=== PATIENT | female | born 1945 | race Caucasian/White ===

== ENCOUNTER 2016-12-08 10:39 | Emergency (ER) | payer MEDICARE ==
--- NOTE | 2016-12-08 12:51 | CT ---
CT THORACIC SPINE NONCONTRAST: HISTORY: Fall. Back injury. FINDINGS: Coronally oriented fractures with minimal distraction involve the spinous processes of T3, T4, T5, T 6, and T7. Other posterior elements are intact. Vertebral body height and alignment are maintained . There are degenerative changes throughout the thoracic spine. Calcifications apparent within the arterial structures. IMPRESSION: Mildly displaced spinous process fractures of T3 through T7. No unstable-type fracture is apparent. POS: [facility]
--- NOTE | 2016-12-08 12:54 | RAD ---
CHEST 1 VIEW: HISTORY: Fall. Chest pain. FINDINGS: Cardiac silhouette is magnified by projection. Pulmonary vasculature is upper limits of normal. Ca lcified granulomata are consistent with healed granulomatous disease. Mediastinum is midline with a ortic calcification. monitor and storage bin tender leads overlie the chest. IMPRESSION: Atherosclerosis. POS: [facility]
== END 2016-12-08 12:53 | disposition home or self-care (01) ==
LOC: ERS 10:39
DX: S22.039A Unspecified fracture of third thoracic vertebra, initial encounter for closed fracture (principal); S22.049A Unspecified fracture of fourth thoracic vertebra, initial encounter for closed fracture; S22.059A Unspecified fracture of T5-T6 vertebra, initial encounter for closed fracture; S22.069A Unspecified fracture of T7-T8 vertebra, initial encounter for closed fracture; E11.9 Type 2 diabetes mellitus without complications; I10 Essential (primary) hypertension; E03.9 Hypothyroidism, unspecified; F32.9 Major depressive disorder, single episode, unspecified; Z79.84 Long term (current) use of oral hypoglycemic drugs; Z79.82 Long term (current) use of aspirin; Z79.899 Other long term (current) drug therapy; W01.0XXA Fall on same level from slipping, tripping and stumbling without subsequent striking against object, initial encounter
CPT/HCPCS: 71010; 72128; 93005

== ENCOUNTER 2017-06-05 14:08 | Outpatient (CLI) | payer MEDICARE | END 2017-06-05 14:09 | disposition home or self-care (01) | LOC: BICCT 14:08 | PROVIDERS: ATTEND Orthopaedic Surgery | DX: S42.401A Unspecified fracture of lower end of right humerus, initial encounter for closed fracture; S52.121A Displaced fracture of head of right radius, initial encounter for closed fracture; S52.131A Displaced fracture of neck of right radius, initial encounter for closed fracture ==

== ENCOUNTER 2017-06-12 10:32 | Outpatient (CLI) | payer MEDICARE ==
[2017-06-12 13:02] LABS: Hemoglobin 16.2 g/dL (12.0-16.0); Mean Corpuscular HGB CONC 32.5 g/dL (32.0-36.0); Mean Corpuscular Hemoglobin 29.4 pg (27.0-31.0); Mean Corpuscular Volume 90.4 fl (81.0-99.0); Platelet Count 311 thou/uL (130-400); RBC Distribution Width 12.6 % (11.5-14.5); Red Blood Cell (RBC) Count 5.53 mill/uL (4.20-5.40); White Blood Cell (WBC) Count 11.8 thou/uL (4.8-10.8)
[2017-06-12 13:16] LABS: Anion Gap 15 mmol/L (10-20); BUN (Urea Nitrogen) 16 mg/dL (9.8-20.1); Calc. Creatinine Clearance 0 mL/min (70-130); Calcium 10.4 mg/dL (7.8-10.44); Carbon Dioxide 26 mmol/L (23-31); Chloride 100 mmol/L (98-107); Estimated GFR-MDRD 75; Potassium 4.5 mmol/L (3.5-5.1); Sodium 136 mmol/L (136-145)
[2017-06-12 13:20] LABS: Glucose 48 mg/dL (83-110)
--- NOTE | 2017-06-13 06:22 | EKG ---
Test Reason : Blood Pressure : / mmHG Vent. Rate : 083 BPM Atrial Rate : 083 BPM P-R Int : 216 ms QRS Dur : 076 ms QT Int : 388 ms P-R-T Axes : 048 084 060 degrees QTc Int : 455 ms Sinus rhythm with 1st degree A-V block Otherwise normal ECG When compared with ECG of 08-DEC-2016 11:12, No significant change was found Confirmed by CELIA CHOUDHARY ([id number]) on 06/13/2017 6:00:18 AM Referred By: FLORI Confirmed By:CELIA CHOUDHARY
== END 2017-06-12 10:33 | disposition home or self-care (01) ==
LOC: LABBT 10:32
PROVIDERS: ATTEND Orthopaedic Surgery
DX: Z01.818 Encounter for other preprocedural examination (principal); S52.121A Displaced fracture of head of right radius, initial encounter for closed fracture
CPT/HCPCS: 80048; 85027; 93005; 93010

== ENCOUNTER 2017-06-13 08:29 | Day surgery (SDC) | payer MEDICARE ==
[2017-06-12 10:55] VITALS: BMI 29.7
[2017-06-13] MEDS ORDERED: Vancomycin HCl 1.5 GM, Admixture Fee 1 EACH in Sodium Chloride 0.9% 250 ML 300 ML IVPB SCH (09:00)
[2017-06-13] MEDS ORDERED: Midazolam HCl 2 mg/2 ml Vial ONE (09:07)
[2017-06-13] MEDS ORDERED: Fentanyl 100 MCG/2 ML VIAL ONE (09:07)
[2017-06-13] MEDS ORDERED: CEFAZOLIN/Water 2 GM/20 ML SYRINGE ONE (09:28)
[2017-06-13] MEDS ORDERED: Bupivacaine/Epinephrine 0.25% 30 ML VIAL ONE (10:55)
--- NOTE | 2017-06-13 11:43 | RAD ---
HISTORY: Radial head replacement for a radial fracture. COMPARISON: 05/29/2017 FINDINGS/IMPRESSION: Two limited intraoperative fluoroscopic views of the right elbow were submitted for interpretation. The patient is status post replacement of the radial head with a prosthesis. No perihardware lucency is seen. The previously seen fracture of the lateral epicondyle is not appreciated on this exam. POS: [facility]
[2017-06-13] MEDS ORDERED: Bupivacaine HCl 0.5%/Epinephrine 1:200,000/PF 30 ml Vial ONE (16:06)
[2017-06-13] MEDS ORDERED: PROPOFOL 200 MG/20 ML VIAL ONE (16:09)
[2017-06-13] MEDS ORDERED: PHENYLEPHRINE-NS 100 MCG/ML 10 ML SYRINGE ONE (16:09)
[2017-06-13] MEDS ORDERED: Dexamethasone 20 MG/5 ML VIAL ONE (16:09)
--- NOTE | 2017-06-13 17:17 | OP ---
DATE OF OPERATION: 06/13/2017 PREOPERATIVE DIAGNOSIS: Comminuted right radial head fracture, greater than 3 fragments. POSTOPERATIVE DIAGNOSIS: Comminuted right radial head fracture, greater than 3 fragments. PROCEDURES PERFORMED: 1. Right radial head replacement. 2. Long arm splint. STAFF: Serjio Mayer M.D. MILITARY LOGISTICS SPECIALIST: Eliezer Robb PA-C. ANESTHESIA: Burrough. The patient received LMA with single shot supraclavicular. ESTIMATED BLOOD LOSS: 50 mL. TOURNIQUET TIME: 55 minutes. ANTIBIOTICS: Ancef 2 grams, vancomycin 1.5 grams. IMPLANTS: [employer] Proline stem, size +2, OD 7.5 mm and a [employer] Evolve stem 22 mm. COMPLICATIONS: None. HISTORY OF PRESENT ILLNESS: Ms. Barrios is a pleasant 71-year-old female who presented to see me on 05/29/2017. The patient had a comminuted radial head fracture that was flipped in the joint and I felt with decreased motion as well as was not repairable. I discussed with patient the risks and benefits of the lateral collateral ligament repair with a radial head replacement. The risks and benefits to include pain, scar, bleeding, infection, damage to vital structures, decreased range of motion or strength, failure of procedure, continued pain despite surgical intervention. The patient understood the risks and benefits of procedure and elected to proceed. PROCEDURE: Time out was performed designating the patient's right upper extremity as the operative site based on sight, consents and markings. After the patient received her antibiotics, the tourniquet was brought up, it was left up for a total of 55 minutes, made an oblique incision down came really more through the EDC, then through trach and its interval came down, exposed the radial neck. We took sharp dorsally supinated putting the hand away to get them removed and removed a large fragment which had caused the defect on the capitellum, it was completely resected. We removed 3 fragments of the joint exposed and saw the lesser sigmoid notch, took my split proximally and distally to expose the fascia split and then split the portion of EDC. We came down and found the patient's articular surface. We exposed the radial head by placing retractors anterior and posterior. We cut about 2 mm, protecting the arm. We then removed that fragment, began broaching, broached up to an 8.5 and chose a 7.5. We also cleaned off the radial head to make it smooth in line with about the 15- degree angle. I looked at the lesser sigmoid notch as well as the patient's coronoid as the base, this left us about mm space as well as the cornoid about 1 -2 mm space. I felt like we had good alignment on AP and lateral radiographs with our trial. We had downsized the radial head, measured about 25 and we placed a 22 mm head as that felt good in the inner diameter. We then removed all the final implant impacted together and placed it into place and took final radiographs showed nice reduction. We then washed. We closed EDC split, portion of the capsule with 0 Vicryl interrupted [id number] stitches. We then ran a locked 0 Vicryl, the fascia closed the elbow. We then washed the joint, washed again. We then closed the subcu and nylon. The patient was placed in a long posterior splint. She will follow up me in a week to remove and begin range of motion. MARSHALL
== END 2017-06-13 14:50 | disposition home or self-care (01) ==
LOC: SDC 08:29
PROVIDERS: ATTEND Orthopaedic Surgery
PROC: 0PRH0JZ Replacement of Right Radius with Synthetic Substitute, Open Approach (ICD-10-PCS; principal; 2017-06-13)
DX: S52.121A Displaced fracture of head of right radius, initial encounter for closed fracture (principal); E11.9 Type 2 diabetes mellitus without complications; E03.9 Hypothyroidism, unspecified; I10 Essential (primary) hypertension; E78.5 Hyperlipidemia, unspecified; Z98.890 Other specified postprocedural states
CPT/HCPCS: 24366; 73070; 76000; 82962; C1776 ×2; 36416; J0670; J1100; J2250; J2704; J3010; J3370; J7050

== ENCOUNTER 2017-06-24 13:58 | Outpatient (CLI) | payer MEDICARE | END 2017-06-24 13:59 | disposition home or self-care (01) | LOC: BICMAMMO 13:58 | PROVIDERS: ATTEND Internal Medicine | DX: Z12.31 Encounter for screening mammogram for malignant neoplasm of breast (principal); Z80.3 Family history of malignant neoplasm of breast | CPT/HCPCS: 77063; 77067 ==

== ENCOUNTER 2018-02-07 07:42 | Outpatient (CLI) | payer MEDICARE ==
--- NOTE | 2018-02-07 10:29 | CT ---
CT NECK SOFT TISSUES: HISTORY: Acute sialadenitis. FINDINGS: Contrast-enhanced CT of the soft tissue neck obtained. Areas of lung parenchymal scarring seen in th e right upper lobe. No definite evidence of soft tissue neck masses or lesions seen. Calcifications seen in the distal r ight and left common carotid arteries extending into the internal carotid arteries compatible with bi lateral common and proximal ICA disease. The internal carotid arteries distally are patent. The rig ht and left parotid glands and submandibular glands are intact. No evidence of abnormal calcificatio ns seen. No definite evidence of submandibular sialolith seen. No definite evidence of inflammatory change seen to suggest sialadenitis. No definite evidence of pathologic lymphadenopathy is seen. T here is some minimal deep cervical and spinal accessory chain left-sided lymph node enlargement diffu sely. These all measure less than 7 mm in their maximum dimension. IMPRESSION: 1. No significant evidence of soft tissue neck abnormality seen. 2. Severe osteophytes with cervical spine narrowing at C5-6 and C6-7. Correlation with MRI cervical spine may be of use. POS: [facility]
[2018-02-07] MEDS ORDERED: ISOVUE-370 76%-LOCM 1 ML ONE (13:28)
== END 2018-02-07 07:43 | disposition home or self-care (01) ==
LOC: BICCT 07:42
PROVIDERS: ATTEND Otolaryngology Plastic Surgery within the Head & Neck
DX: K11.21 Acute sialoadenitis (principal); M25.78 Osteophyte, vertebrae; M48.02 Spinal stenosis, cervical region
CPT/HCPCS: 70491

== ENCOUNTER 2018-08-05 11:25 | Day surgery (SDC) | payer MEDICARE ==
[2018-08-05 11:59] LABS: #Basophils 0.1 thou/uL (0.0-0.2); #Eosinphils 0.2 thou/uL (0.0-0.7); #Lymphocytes 2.4 thou/uL (1.20-3.40); #Monocytes 1.8 thou/uL (0.11-0.59); #Neutrophils 8.5 thou/uL (1.40-6.50); %Basophils 0.6 % (0.0-1.0); %Eosinophils 1.7 % (0.0-10.0); %Lymphocytes 18.6 % (21.0-51.0); %Monocytes 13.5 % (0.0-10.0); %Neutrophils 65.6 % (42.0-75.0); Mean Corpuscular HGB CONC 34.7 g/dL (32.0-36.0); Mean Corpuscular Hemoglobin 32.2 pg (27.0-31.0); Mean Corpuscular Volume 92.8 fL (78.0-98.0); Mean Platelet Volume 7.2 fL (7.4-10.4); Platelet Count 247 thou/uL (130-400); RBC Distribution Width 11.9 % (11.5-14.5); Red Blood Cell (RBC) Count 4.66 mill/uL (4.20-5.40); White Blood Cell (WBC) Count 12.9 thou/uL (4.8-10.8)
[2018-08-05 12:43] LABS: ALT (SGPT) 22 U/L (8-55); AST (SGOT) 21 U/L (5-34); Albumin 4.4 g/dL (3.4-4.8); Alkaline Phosphatase 101 U/L (40-150); Anion Gap 13 mmol/L (10-20); BUN (Urea Nitrogen) 22 mg/dL (9.8-20.1); Bilirubin, Total 0.4 mg/dL (0.2-1.2); Calc. Creatinine Clearance 0 mL/min (70-130); Calcium 10.3 mg/dL (7.8-10.44); Carbon Dioxide 27 mmol/L (23-31); Chloride 99 mmol/L (98-107); Estimated GFR-MDRD 66; Globulin 3.4 g/dL (2.4-3.5); Glucose 119 mg/dL (83-110); Protein, Total 7.8 g/dL (6.0-8.3); Sodium 135 mmol/L (136-145)
[2018-08-05 14:17] LABS: Bilirubin Negative (Negative); Blood, Urine Negative (Negative); Clarity CLEAR (Clear); Glucose, Urine (Dipstick) Negative (Negative); Leukocyte Negative (Negative); Nitrite Negative (Negative); Protein, Urine (Dipstick) Negative (Neg-Trace); Specific Gravity, Urine 1.012 (1.002-1.036); Urobilinogen 0.2 mg/dL (0.2-1.0); pH, Urine 6.5 (5.0-9.0)
--- NOTE | 2018-08-05 14:27 | CT ---
CT OF THE ABDOMEN AND PELVIS WITH IV CONTRAST INDICATION: Right lower quadrant abdominal pain for 2 weeks COMPARISON: CT the abdomen and pelvis dated January 10, 2017. FINDINGS: ABDOMEN: Lung bases: There is stable scarring within the right middle lobe. Liver: There is a calcified granuloma within the liver. Gallbladder: Normal appearing. Pancreas: Normal. Adrenal glands: Normal. Spleen: There are small calcified granuloma within the spleen. Kidneys: Normal. Retroperitoneum of the upper abdomen: There are moderate vascular calcifications seen involving the v isualized vasculature. No pathologically enlarged lymph nodes are evident. Pelvis: Small and large bowel: There is an enlarged and inflamed appendix in the right lower quadrant measuri ng 1.4 cm in its greatest diameter. No drainable fluid collection is evident. There is cecal apical wall thickening. There is a mild amount of retained stool within the colon. Bladder: Normal. Rectal and perirectal soft tissues:Normal. Reproductive structures: Surgically absent Free fluid in pelvis: No free fluid is evident. Lymphadenopathy pelvis: No lymphadenopathy is evident. Osseous structures: No acute osseous abnormalities. There is a small sclerotic lesion involving the p osterior right T12 vertebral body which is stable to comparison dated back to June 29, 2016 suspicious for a slightly atypical bony hemangioma. There is diffuse osteopenia. There is scattered degenerative and osteoarthritic changes. IMPRESSION: 1. Noncomplicated acute appendicitis. Findings called to Dr. Ward at 2:20 PM on August 05, 2018.
[2018-08-05] MEDS ORDERED: Piperacillin/Tazobactam 4.5 GM VIAL ONE (14:35)
[2018-08-05] MEDS ORDERED: Morphine 4 MG/ML VIAL ONE (15:57)
[2018-08-05] MEDS ORDERED: Bupivacaine HCl 0.5%/Epinephrine 1:200,000/PF 30 ml Vial ONE (18:20)
[2018-08-05] MEDS ORDERED: Fentanyl 100 MCG/2 ML VIAL ONE (18:32)
[2018-08-05] MEDS ORDERED: Ketorolac Tromethamine 30 MG/ML VIAL ONE (18:38)
--- NOTE | 2018-08-05 18:40 | HP ---
HISTORY OF PRESENT ILLNESS: Odalis Barrios is a 73-year-old female, who lives alone, but has her grandchild and sister with her. She has had experienced right lower quadrant pain for the last 24 hours. She has suffered anorexia, increased pain with movement, but no nausea or vomiting. She was seen in the emergency room and noted to have a white count of 12 and hemoglobin 15. Basic metabolic profile normal. Underwent a CAT scan demonstrating changes consistent with appendicitis. ALLERGIES: NONE. SOCIAL HISTORY: Tobacco, none. Alcohol, socially. MEDICATIONS: 1. Metformin. 2. Synthroid. 3. Prozac. PAST SURGICAL HISTORY: Hysterectomy, transvaginal laminectomy, tonsillectomy, right arm ORIF. Note that during her transvaginal hysterectomy, she had a colon injury and abscess, required additional treatment. REVIEW OF SYSTEMS: Noncontributory. She is up-to-date on colonoscopy, having had one a year ago. PHYSICAL EXAMINATION: VITAL SIGNS: Heart rate 74, blood pressure 130/65, respiratory rate 17, temperature 98.5 degrees, and weight 76 kg. HEAD, EARS, EYES, NOSE, AND THROAT: Unremarkable. LUNGS: Clear to auscultation. CARDIAC: Regular rate and rhythm without murmur or gallop. ABDOMEN: Soft. Tenderness in right lower quadrant. No guarding or rebound. EXTREMITIES: Unremarkable. Ankles without edema. ASSESSMENT AND PLAN: Acute appendicitis. Recommend laparoscopic video appendectomy. Risks of infection, bleeding, open operation discussed. She consents. Questions answered. Job ID: [id number]
[2018-08-05] MEDS ORDERED: Piperacillin/Tazobactam 3.375 GM VIAL ONE (19:14)
--- NOTE | 2018-08-06 00:38 | OP ---
DATE OF PROCEDURE: 08/05/2018 PREOPERATIVE DIAGNOSIS: Acute appendicitis (pain for 2 weeks, CT scan demonstrates acute appendicitis). POSTOPERATIVE DIAGNOSES: Acute appendicitis (pain for 2 weeks, CT scan demonstrates acute appendicitis) with inflammatory versus tumor mass at the base of the appendix (the patient reports colonoscopy last year). PROCEDURE PERFORMED: Laparoscopic appendectomy and partial cecectomy (just over the top of the ileocecal valve). ANESTHESIA: General, local 0.5% Marcaine with epinephrine 30 mL. NOTE: Enlarged suprapubic incision. Appendix removed in an endobag and 0 Vicryl continuous suture to close the suprapubic fascia. DESCRIPTION OF PROCEDURE: The patient was taken to the operating room where under general anesthesia, Turpin catheter placed at the beginning of the procedure and removed at the end. Abdomen was prepared with ChloraPrep and draped in routine fashion. Local anesthetic 0.5% Marcaine with epinephrine was infiltrated in the skin and subcutaneous tissue at each port site. Infraumbilical incision made, pneumoperitoneum to 15 mmHg obtained with the Veress needle, replaced with a 5 port, laparoscope inserted. Right lateral subcostal incision made and 5 port placed. Suprapubic incision made and a 12 port placed. Omentum was adherent to the cecum and appendix. This was stripped down. There were inflammatory adhesions. The appendix was chronically inflamed to the pelvic sidewall and this was stripped down with some difficulty. The cecum and proximal ascending colon were mobilized from the pelvic wall. Omentum carefully dissected free, identifying the ileocecal valve. There seemed to be a masslike effect the appendix. Partial cecectomy was undertaken as LigaSure was used to dissect the mesentery and cecum divided with 4 fires of Endo-ROBERTH blue load stapler. Portion of the cecum and appendix placed in Endobag and removed through enlarged suprapubic fascia. Area of dissection irrigated and irrigant evacuated. Hemostasis noted. Clips applied to the area of staple line that was oozing slightly. Otherwise, good hemostasis noted. There was no purulence. Irrigant and pneumoperitoneum evacuated. All instruments were removed. Liver appeared to be normal. Remainder of the viscera appeared to be normal. Suprapubic fascia approximated with continuous suture of 0 Vicryl on a UR needle. Skin and subcutaneous tissues irrigated and skin approximated with karmen. Sterile dressing applied. Job ID: [id number]
== END 2018-08-05 21:20 | disposition home or self-care (01) ==
LOC: ERS 11:25
PROVIDERS: ATTEND Specialist
PROC: 0DTJ4ZZ Resection of Appendix, Percutaneous Endoscopic Approach (ICD-10-PCS; principal; 2018-08-05)
DX: K35.80 Unspecified acute appendicitis (principal); Z79.84 Long term (current) use of oral hypoglycemic drugs; Z79.899 Other long term (current) drug therapy
CPT/HCPCS: 36415; 74177; 80053; 81003; 83690; 85025; 88304; 93005; 96365; 96366; 96375; J0131; J0670; J1885; J2270; J2543; J3010

== ENCOUNTER 2018-08-11 10:22 | Outpatient (CLI) | payer MEDICARE ==
--- NOTE | 2018-08-11 11:12 | MMO ---
Bilateral MAMMO Bilat Screen [facility]DI[facility]AL. CLINICAL HISTORY: Patient is 73 years old and is seen for screening. The patient has the following family history of breast cancer: maternal aunt, great. The patient has no personal history of cancer. VIEWS: The views performed were: bilateral craniocaudal with tomosynthesis and bilateral mediolateral oblique with tomosynthesis. FILMS COMPARED: The present examination has been compared to prior imaging studies performed at [facility] on 03/02/2013, 04/12/2014, 06/06/2016 and 06/24/2017. MAMMOGRAM FINDINGS: The breasts are heterogeneously dense, which could obscure a lesion on mammography. There are stable benign appearing calcifications seen in both breasts. There are no suspicious masses, suspicious calcifications, or new areas of architectural distortion. IMPRESSION: THERE IS NO MAMMOGRAPHIC EVIDENCE OF MALIGNANCY. A ROUTINE FOLLOW-UP MAMMOGRAM IN 1 YEAR IS RECOMMENDED. THE RESULTS OF THIS EXAM WERE SENT TO THE PATIENT. ACR BI-RADS Category 2 - Benign finding MAMMOGRAPHY NOTE: 1. A negative mammogram report should not delay a biopsy if a dominant of clinically suspicious mass is present. 2. Approximately 10% to 15% of breast cancers are not detected by mammography. 3. Adenosis and dense breasts may obscure an underlying neoplasm.
--- NOTE | 2018-08-11 11:29 | BD ---
DEXA BONE DENSITOMETRY: (Dual energy x-ray absorptiometry) DATE: 08/11/2018 HISTORY: 73-year old white female for age-related, post-menopausal, osteoporosis screening. weight: 168 lbs height: 69 in. age of menopause: 50 FINDINGS: The bone mineral density (BMD) is given in grams per square centimeter (g/cm2): LUMBAR SPINE: BMD (g/cm^2) T score Z score L1: 1.131 1.3 3.3 L2: 1.167 1.3 3.5 L3: 1.160 0.7 3.1 L4: 1.136 0.7 3.1 Total: 1.147 0.9 3.2 HIP: BMD (g/cm^2) T score Z score Femoral neck: 0.771 -0.7 1.3 Total: 0.997 0.4 2.1 IMPRESSION: 1.) The mean bone mineral density of the lumbar spine is normal. Fracture risk is not increased. 2) The bone mineral density of the femoral neck is normal. Fracture risk is not increased.
== END 2018-08-11 10:23 | disposition home or self-care (01) ==
LOC: BICMAMMO 10:22
PROVIDERS: ATTEND Internal Medicine
DX: Z12.31 Encounter for screening mammogram for malignant neoplasm of breast (principal); M85.89 Other specified disorders of bone density and structure, multiple sites; Z80.3 Family history of malignant neoplasm of breast
CPT/HCPCS: 77063; 77067; 77080

== ENCOUNTER 2019-03-31 20:10 | Observation (INO) | payer MEDICARE ==
--- NOTE | 2019-03-31 20:42 | RAD ---
PA AND LATERAL CHEST: 03/31/19 HISTORY: Chest pain. COMPARISON: A 12/05/18 study. The heart size is within normal limits. There are atherosclerotic changes of the aorta. There is line ar scarring extending from the right hilum, along the superior portion of the major fissure on the r ight. On today's examination, there is a small loculated pneumothorax that is seen along the right up per chest. This appears small. Left lung is clear. IMPRESSION: Development of a small loculated appearing right sided pneumothorax. Findings discussed with Dr. Sanchez ett. POS: [facility]
[2019-03-31] MEDS ORDERED: HYDROcodone/Acetaminophen 5/325 mg Tablet ONE (21:30)
[2019-03-31 21:52] LABS: Prothrombin Time 12.9 SEC (12.0-14.7)
[2019-03-31] MEDS ORDERED: Dextrose 50% Abboject 50 ML SYRINGE SLOW IVP PRN (21:54)
[2019-03-31] MEDS ORDERED: Insulin Regular 300 UNITS/3 ML VIAL SC PRN (21:54)
[2019-03-31] MEDS ORDERED: hydrALAZINE 20 MG/ML VIAL SLOW IVP PRN (21:54)
[2019-03-31] MEDS ORDERED: Ondansetron PF 4 MG/2 ML Vial IVP PRN (21:54)
[2019-03-31] MEDS ORDERED: Dextrose 5% in Water 1,000 ML IV PRN (21:54)
[2019-03-31 21:56] LABS: #Basophils 0.1 thou/uL (0.0-0.2); #Eosinphils 0.2 thou/uL (0.0-0.7); #Lymphocytes 2.5 thou/uL (1.20-3.40); #Monocytes 1.1 thou/uL (0.11-0.59); #Neutrophils 11.4 thou/uL (1.40-6.50); %Basophils 0.8 % (0.0-1.0); %Eosinophils 1.2 % (0.0-10.0); %Lymphocytes 16.2 % (21.0-51.0); %Monocytes 7.2 % (0.0-10.0); %Neutrophils 74.7 % (42.0-75.0); Hemoglobin 15.1 g/dL (12.0-16.0); Mean Corpuscular HGB CONC 33.5 g/dL (32.0-36.0); Mean Corpuscular Hemoglobin 30.5 pg (27.0-31.0); Mean Corpuscular Volume 91.1 fL (78.0-98.0); Mean Platelet Volume 7.2 fL (7.4-10.4); Platelet Count 256 thou/uL (130-400); RBC Distribution Width 12.2 % (11.5-14.5); Red Blood Cell (RBC) Count 4.95 mill/uL (4.20-5.40); White Blood Cell (WBC) Count 15.2 thou/uL (4.8-10.8)
[2019-03-31] MEDS ORDERED: traMADol HCl 50 MG TAB PO PRN (21:59)
[2019-03-31 22:06] LABS: Anion Gap 14 mmol/L (10-20); BUN (Urea Nitrogen) 20 mg/dL (9.8-20.1); Calc. Creatinine Clearance 0 mL/min (70-130); Calcium 9.9 mg/dL (7.8-10.44); Carbon Dioxide 26 mmol/L (23-31); Chloride 99 mmol/L (98-107); Estimated GFR-MDRD 71; Glucose 142 mg/dL (83-110); Magnesium 2.2 mg/dL (1.6-2.6); Phosphorus 3.2 mg/dL (2.3-4.7); Potassium 3.9 mmol/L (3.5-5.1); Sodium 135 mmol/L (136-145)
[2019-04-01] MEDS: Acetaminophen 500 MG TAB PO SCH ×3 (00:42→11:33)
[2019-04-01] MEDS: traMADol HCl 50 MG TAB PO SCH ×3 (00:42→11:33)
[2019-04-01] MEDS: Cyclobenzaprine 10 MG TAB PO PRN ×2 (00:44→08:44)
[2019-04-01 01:14] VITALS: BMI 25.8
[2019-04-01] MEDS: Ibuprofen 200 MG TAB PO SCH ×2 (04:59→14:27)
[2019-04-01] MEDS ORDERED: PROVENTIL INHALER 6.7 G (200 INHALATIONS) INH PRN (05:05)
[2019-04-01] MEDS ORDERED: Levothyroxine Sodium 25 MCG TAB PO SCH (06:00)
[2019-04-01] MEDS ORDERED: Levothyroxine Sodium 112 MCG TAB PO SCH (06:00)
--- NOTE | 2019-04-01 07:26 | HP ---
TRAUMA SURGEON: Matt Harrison MD CONSULTING PHYSICIAN: None. HISTORY OF PRESENT ILLNESS: The patient is a 73-year-old female, who presented to the emergency department after she had a mechanical fall in the shower. The patient reported slipping and falling in the shower and hitting her right-sided posterior chest wall on the shower bench. She denied loss of consciousness. Reports she was feeling well before that, just simply slipped. She denies loss of consciousness and anticoagulation use. She denies numbness and tingling in her upper and lower extremities. Reports that she was having persistent pain after taking 50 mg of p.o. tramadol at home, which she had from a previous appendectomy about six months ago and that is why she came to the emergency department. The patient is not able to take deep breaths or cough. REVIEW OF SYSTEMS: All additional 10-point review of systems negative except as indicated above. PAST MEDICAL HISTORY: Hypothyroidism, hyperlipidemia, diabetes, hypertension. The patient also reported that she had some type of cardiac arrhythmia for which she was recently started on a medication, but she cannot remember. She is a poor historian. PAST SURGICAL HISTORY: Appendectomy, right-sided radius ulnar surgery due to fracture, hysterectomy, C5-C6 laminectomy. SOCIAL HISTORY: The patient lives at home and gets around independently. She denies tobacco, drug, or alcohol use. MEDICATIONS: 1. Prozac. 2. Metformin. 3. Synthroid. 4. Tramadol. The patient also takes some sort of heart medication. She is a poor historian, but family has agreed to bring in her home medications. ALLERGIES: NO KNOWN DRUG ALLERGIES. PHYSICAL EXAMINATION: VITAL SIGNS: Temperature 98.8, heart rate 84, respirations 20, oxygen saturation 93% on room air, and blood pressure 156/82. PRIMARY SURVEY: Airway intact. Adequate breath sounds bilaterally, although very shallow. 2+ pulses in bilateral radials, femorals, and DPs. GCS 15. Gross motor and sensation are intact. No lacerations, bruising, or external bleeding. SECONDARY SURVEY: HEAD: Normocephalic and atraumatic. No gross palpable skull deformities or tenderness. EYES: Pupils 3-2, equal, round, reactive to light bilaterally. ENT: No hemotympanum. No epistaxis. No septal hematoma. Midface stable to manipulation. No blood in the oropharynx. Dentition is intact. NECK: No anterior neck injury/crepitus/tenderness. C-SPINE: No step-offs, deformity, and nontender. C-collar not in place. CHEST: Right-sided posterior lateral and some anterior chest wall tenderness with no crepitus. No abrasions or ecchymosis noted. Equal chest movement, although shallow. ABDOMEN: Soft, nontender, nondistended. PELVIS: Stable to palpation. Nontender. RECTAL: Deferred. GENITOURINARY: Deferred. EXTREMITIES: No gross deformities. No abrasions or ecchymosis noted. 2+ pulses in bilateral radials, femorals, and DPs. BACK/SPINE: No step-offs or deformities or tenderness to palpation of the thoracic or lumbar spine. No abrasions or ecchymosis noted. NEUROLOGIC: 5/5 strength in bilateral service correspondent, plantar flexion, dorsiflexion, normal sensation x4 extremities. LABORATORY FINDINGS: White count 15.2, hemoglobin 15.1, hematocrit 45.1, platelets 256. INR 1.0. Sodium 135, potassium 3.9, chloride 99, bicarb 26, BUN 20, creatinine 0.79, glucose 142, phosphorus 3.2, and magnesium 2.2. DIAGNOSTIC FINDINGS: Chest x-ray completed today in the emergency department demonstrates development of a small loculated-appearing right-sided pneumothorax. ASSESSMENT: 1. Status post mechanical fall from standing in the shower. 2. Small right-sided loculated pneumothorax. 3. Right-sided chest wall contusion. 4. Acute traumatic pain secondary to above. 5. History of hypothyroidism, hyperlipidemia, diabetes, hypertension, and some form of cardiac arrhythmia. PLAN: We will admit the patient to observation and send her to the surgical floor. We will start her on the PO pathway of the rib fracture protocol. We will repeat a chest x-ray in the morning to further evaluate development of the pneumothorax. We will place her on 2 L nasal cannula consistently overnight regardless of her SpO2 saturation to help resolve her pneumothorax. She will work with Physical and Occupational Therapy tomorrow. If her pneumothorax is improved or stable, her pain is well controlled, and she can move around safely, we will discharge her home tomorrow. We will also restart all of her home medications after her medications are reconciled. This patient was discussed with Dr. Harrison before this dictation. Job ID: [id number] [facility]
--- NOTE | 2019-04-01 08:15 | RAD ---
CHEST 1 VIEW: INDICATION: History of right-sided pneumothorax. FINDINGS: The small right pneumothorax has decreased in size. A small residual right apical lateral pneumothor ax remains. Left lung is clear. Heart size is normal. No acute osseous abnormality is evident. IMPRESSION: Decreasing size of right-sided pneumothorax. POS: [facility]
[2019-04-01] MEDS: Gabapentin 100 MG CAP PO SCH ×2 (08:34→14:27)
[2019-04-01] MEDS ORDERED: Polyethylene Glycol 3350 17 GM Packet PO SCH (09:00)
[2019-04-01] MEDS ORDERED: Senokot S 8.6-50 MG TAB PO SCH (09:00)
[2019-04-01] MEDS ORDERED: Non-Formulary Item 1 EACH (Levothyroxine Sodium [Synthroid] 137 MCG) PO SCH (09:00)
[2019-04-01] MEDS ORDERED: Bisoprolol Fumarate 5 MG TAB PO SCH (09:00)
[2019-04-01] MEDS ORDERED: FLUoxetine HCl 20 MG CAP PO SCH (09:00)
[2019-04-01] MEDS ORDERED: Hydrochlorothiazide 25 MG TAB PO SCH (09:00)
[2019-04-01] MEDS ORDERED: Valsartan 80 MG TAB PO SCH (09:00)
[2019-04-01 16:20] VITALS: BP 145/87; TEMP 97.6
--- NOTE | 2019-04-01 18:22 | DIS ---
DATE OF ADMISSION: 04/01/2019 DATE OF DISCHARGE: 04/01/2019 ADMISSION DIAGNOSES: 1. Status post ground level fall. 2. Small right-sided pneumothorax. 3. Right-sided chest wall contusion. 4. Acute pain secondary to above. 5. Multiple medical comorbidities. CONSULTATIONS: None. PROCEDURES: None. SUMMARY: The patient is a 73-year-old woman who fell in her bathroom striking the bathtub on her left chest. She was brought to the emergency department, evaluated, examined, noted to have the above injuries. Overnight, she had no issues. Her morning chest x-ray showed slight resolution of the pneumothorax. Upon physical exam, the patient was tolerating a diet. Her pain was controlled. She was able to reach 2000 on her incentive spirometry. She was ambulatory without difficulty. The patient was discharged home with Ultram and gabapentin for pain. She will follow up in the [facility]uma [facility] in 1 week with a repeat chest x-ray at that time and she was given strict return precautions also. Job ID: [id number]
[2019-04-01] MEDS ORDERED: Simvastatin 5 MG TAB PO SCH (21:00)
[2019-04-01] MEDS ORDERED: Montelukast Sodium 10 mg Tablet PO SCH (21:00)
== END 2019-04-01 16:37 | disposition home or self-care (01) ==
LOC: ERS 20:10 → SURG A 04-01 00:27
PROVIDERS: ADMIT Specialist; ATTEND Specialist
DX: J93.9 Pneumothorax, unspecified (principal); S20.211A Contusion of right front wall of thorax, initial encounter; G89.11 Acute pain due to trauma; E03.9 Hypothyroidism, unspecified; E78.5 Hyperlipidemia, unspecified; E11.9 Type 2 diabetes mellitus without complications; I10 Essential (primary) hypertension; I49.9 Cardiac arrhythmia, unspecified; F32.9 Major depressive disorder, single episode, unspecified; Z79.84 Long term (current) use of oral hypoglycemic drugs; Z79.899 Other long term (current) drug therapy; W18.2XXA Fall in (into) shower or empty bathtub, initial encounter
CPT/HCPCS: 36415; 36416; 71045; 71046; 80048; 83735; 84100; 85025; 85610; G0378

== ENCOUNTER 2019-04-03 12:34 | Observation (INO) | payer MEDICARE ==
[2019-04-03 13:21] LABS: #Basophils 0.1 thou/uL (0.0-0.2); #Eosinphils 0.3 thou/uL (0.0-0.7); #Lymphocytes 2.4 thou/uL (1.20-3.40); %Basophils 0.7 % (0.0-1.0); %Eosinophils 2.4 % (0.0-10.0); %Lymphocytes 18.4 % (21.0-51.0); %Monocytes 8.1 % (0.0-10.0); %Neutrophils 70.4 % (42.0-75.0); Hemoglobin 15.2 g/dL (12.0-16.0); Mean Corpuscular HGB CONC 32.9 g/dL (32.0-36.0); Mean Corpuscular Hemoglobin 30.7 pg (27.0-31.0); Mean Corpuscular Volume 93.4 fL (78.0-98.0); Mean Platelet Volume 7.5 fL (7.4-10.4); Platelet Count 233 thou/uL (130-400); RBC Distribution Width 12.1 % (11.5-14.5); Red Blood Cell (RBC) Count 4.96 mill/uL (4.20-5.40); White Blood Cell (WBC) Count 12.8 thou/uL (4.8-10.8)
--- NOTE | 2019-04-03 13:35 | RAD ---
RADIOGRAPH CHEST 1 VIEW: DATE: TIME: 1249 hours HISTORY: 73-year-old female with cough and dyspnea. FINDINGS: The thoracic aorta is tortuous and ectatic. There is no evidence of air space density, pneumothorax, or pulmonary edema. The lateral costophrenic angles are sharp. On 04/01/2019, there was a tiny residual right-sided upper pneumothorax. That is either smaller or orta s resolved. It is partially obscured by an ECG lead in that location. There is no cardiomegaly. Plate-like pulmonary scar extending from right hilum into right upper lobe is again noted. There is no cardiomegaly. IMPRESSION: 1. No acute pulmonary findings. 2. Ectasia of thoracic aorta. 3. The previously demonstrated tiny right-sided pneumothorax is currently not definitely visualized. jn [] POS: [facility]
[2019-04-03 13:42] LABS: ALT (SGPT) 22 U/L (8-55); AST (SGOT) 24 U/L (5-34); Albumin 4.7 g/dL (3.4-4.8); Alkaline Phosphatase 86 U/L (40-110); Anion Gap 13 mmol/L (10-20); BUN (Urea Nitrogen) 18 mg/dL (9.8-20.1); Bilirubin, Total 0.4 mg/dL (0.2-1.2); Calc. Creatinine Clearance 0 mL/min (70-130); Calcium 10.1 mg/dL (7.8-10.44); Carbon Dioxide 27 mmol/L (23-31); Chloride 99 mmol/L (98-107); Estimated GFR-MDRD 70; Globulin 3.4 g/dL (2.4-3.5); Glucose 85 mg/dL (83-110); Potassium 4.2 mmol/L (3.5-5.1); Protein, Total 8.1 g/dL (6.0-8.3); Sodium 135 mmol/L (136-145)
[2019-04-03] MEDS ORDERED: Iopamidol-370 76% 500 ML 1 ML ONE (14:31)
--- NOTE | 2019-04-03 15:25 | CT ---
CT ANGIOGRAM CHEST: DATE: 04/03/2019. COMPARISON: None. HISTORY: Shortness of breath, cough. TECHNIQUE: Axial CT imaging at 2.5 mm intervals from thoracic inlet through upper abdomen with intravenous contr ast. Coronal and sagittal 3D reformatted imaging obtained. FINDINGS: No chest lymphadenopathy is evident. Imaged upper abdomen grossly unremarkable. Small pleural effusion on the right. No left pleural eff usion. No significant mediastinal or pericardial fluid. No evidence for a pulmonary arterial emboli sm. Small anterior pneumothorax noted on the right with an apical and a basilar component. There is smal l volume pneumomediastinum as well. No left-sided pneumothorax is noted. There is mild volume loss involving the inferior posterior right lower lobe. Linear atelectatic thomas ge noted in the posterior right upper lobe region. There is bronchiectasis and volume loss involving the right middle lobe medially. There are scattered areas of centrilobular emphysematous change. No discrete/dominate pulmonary parenchymal mass lesion or nodule noted on the left. A nonspecific sm all pleural-based nodule is noted within the right lower lobe laterally on image 71 measuring approxi mately 6 mm in AP dimension. Followup CT examination is suggested in 6 months. Review of the osseous structures demonstrates scattered areas of degenerative change within the thora cic spine. There is no worrisome lytic or blastic bone lesion noted. There is scattered atherosclerotic calcification of the thoracic aorta, the coronary arteries, and th e upper abdominal aorta. A few scattered opacified bronchi are noted within the inferior posterior a spect of the right lower lobe suggesting a degree of aspiration. IMPRESSION: 1. Small pneumothorax on the right with apical and basilar components. Small volume pneumomediastin um noted as well. 2. Pleural-based nodule within the lateral aspect of the right lower lobe for which followup CT exam ination is advised in 6 months. 3. Atelectatic change in the right upper lobe. 4. Volume loss and bronchiectasis within the right middle lobe. 5. Small volume bronchial plugging within right lower lobe. Results called to Dr. Bernstein 2:35 p.m. 04/03/2019. CODE CR POS: OFF
[2019-04-03] MEDS ORDERED: cefTRIAXone\\ROCEPHIN 1 GM VIAL ONE (15:59)
[2019-04-03] MEDS ORDERED: Morphine 4 MG/ML VIAL ONE (16:38)
[2019-04-03] MEDS ORDERED: Azithromycin 500 MG VIAL ONE (16:38)
[2019-04-03] MEDS ORDERED: Dextrose 5% in Water 1,000 ML IV PRN (16:54)
[2019-04-03] MEDS ORDERED: Dextrose 50% Abboject 50 ML SYRINGE SLOW IVP PRN (16:54)
[2019-04-03] MEDS ORDERED: Ondansetron ODT 4 MG TAB PO PRN (16:54)
[2019-04-03] MEDS ORDERED: Insulin Regular 300 UNITS/3 ML VIAL SC PRN ×2 (16:54)
[2019-04-03] MEDS ORDERED: Ondansetron PF 4 MG/2 ML Vial IVP PRN (16:54)
[2019-04-03] MEDS ORDERED: hydrALAZINE 20 MG/ML VIAL SLOW IVP PRN (16:54)
[2019-04-03] MEDS ORDERED: traMADol HCl 50 MG TAB PO PRN (17:00)
[2019-04-03] MEDS ORDERED: Ibuprofen 200 MG TAB PO PRN (17:00)
[2019-04-03] MEDS ORDERED: Cyclobenzaprine 10 MG TAB PO PRN (17:01)
[2019-04-03 17:22] LABS: Magnesium 2.3 mg/dL (1.6-2.6); Phosphorus 4.3 mg/dL (2.3-4.7)
[2019-04-03 17:37] VITALS: BMI 26.4
[2019-04-03] MEDS: Sodium Chloride 0.9% 1,000 ML IV SCH (18:00)
[2019-04-03] MEDS: traMADol HCl 50 MG TAB PO SCH (18:00)
[2019-04-03] MEDS: Acetaminophen 500 MG TAB PO SCH (18:00)
--- NOTE | 2019-04-03 18:39 | HP ---
This is Alejandra Torres NP dictating a report for Bhanu Son MD. HISTORY OF PRESENT ILLNESS: This is a 73-year-old female, who presented to the emergency room with shortness of breath and productive cough that started today. The patient was admitted on 04/01/2019, after a mechanical fall in the shower, hitting her right side. The patient sustained a right-sided small pneumothorax and was admitted overnight for observation. The patient was discharged on pain medications and a followup appointment was scheduled with [facility] on . She has had increased pain with coughing and deep breaths. States she can feel the mucous in her right lung. The patient was evaluated in the emergency room and was found to have a possible right bibasilar pneumonia. The patient denies being febrile or having chills. The patient has normal vital signs in the emergency room. Trauma Service was asked to readmit the patient. REVIEW OF SYSTEMS: A 10-point review of systems is negative unless otherwise indicated in the above HPI. PAST MEDICAL HISTORY: Hypothyroidism, hyperlipidemia, diabetes, hypertension, cardiac arrhythmia. PAST SURGICAL HISTORY: Appendectomy, right radius ulnar surgery, hysterectomy, C5 and C6 laminectomy. SOCIAL HISTORY: The patient lives at home and gets around independently, denies alcohol use. Denies drug use. Denies smoking history. MEDICATIONS: 1. Prozac. 2. Metformin. 3. Synthroid. 4. Tramadol. 5. Gabapentin. ALLERGIES: NO KNOWN DRUG ALLERGIES. PHYSICAL EXAMINATION: VITAL SIGNS: Blood pressure 122/99, pulse 66, SpO2 of 98% on 3 L nasal cannula, respirations 20, temperature 98.2. GENERAL: A well-appearing elderly female, sitting up in hospital bed, in no acute distress. HEENT: Head is atraumatic and normocephalic, tympanic membranes unremarkable, mucous membranes moist. Pupils are equal bilateral, normal pharynx without any erythema or exudate. NECK: Normal range of motion. Trachea at midline. No cervical tenderness. RESPIRATORY: Good inspiratory and expiratory effort, symmetrical chest rise, bilateral breath sounds clear. No wheezing, rales, or rhonchi. No respiratory distress. CARDIAC: Regular rate, regular rhythm, no murmurs. ABDOMEN: Soft, nontender, nondistended, active bowel sounds. BACK: Tenderness, pain worse with deep breath on the right lateral back. EXTREMITIES: Moves all extremities. Motor strength is 5/5 in all extremities. Positive distal pulses. NEUROLOGIC: No focal deficits. The patient is oriented to person, place, time. LABORATORY DATA: WBC 12.8, RBC 4.96, hemoglobin 15.2, hematocrit 46.4, platelets 233. Sodium 135, potassium 4.2, chloride 99, BUN 18, creatinine 0.80, estimated GFR 70, glucose 85, calcium 10.1, phosphorus 4.3, magnesium 2.3, alkaline phos 86. Troponin I less than 0.010. BNP 133.2, albumin 4.7. DIAGNOSTIC DATA: Chest x-ray, impression, no acute pulmonary findings. Ectasia of thoracic aorta. Tiny right-sided pneumothorax, it is currently not definitely visualized. Chest thorax CTA; impression, small pneumothorax on the right with apical and basilar components. Small volume pneumomediastinum noted as well. Pleural- based nodule within the lateral aspect of the right lower lobe. Followup CT examination is advised in 6 months. Atelectatic change in the right lower lobe. Volume loss and bronchiectasis within the right middle lobe. Small volume bronchial plugging within the right lower lobe. ASSESSMENT: 1. Status post fall with right small apical pneumothorax on 04/01/2019. 2. Shortness of breath and productive cough. 3. Small residual right apical pneumothorax. 4. Atelectasis due to pain. 5. Right basilar changes, likely mucous plugging. PLAN: We will place the patient on observation status. We will obtain a sputum culture and follow. We will place the patient on scheduled and p.r.n. nebs. We will control the patient's pain. We will have patient do aggressive pulmonary toilet with incentive spirometer, use every hour while awake. She received antibiotics in the ER but I do not feel this this is a pneumonia, as she is not febrile. Hold additional antibiotics for now. The plan will be discussed with the attending after this dictation. Job ID: [id number] [facility]
[2019-04-03] MEDS ORDERED: Enoxaparin Sodium 40 MG/0.4 ML SYRINGE SC SCH (21:00)
[2019-04-03] MEDS: Senokot S 8.6-50 MG TAB PO SCH (21:31)
[2019-04-03] MEDS: Gabapentin 300 MG CAP PO SCH (21:36)
[2019-04-04] MEDS: Acetaminophen 500 MG TAB PO SCH ×2 (00:16→05:59)
[2019-04-04] MEDS: traMADol HCl 50 MG TAB PO SCH ×2 (00:16→06:00)
--- NOTE | 2019-04-04 01:12 | PRG ---
DATE OF SERVICE: 04/03/2019 SUBJECTIVE: This is a 73-year-old female who was admitted for observation due to concerns for productive cough and shortness of breath status post fall on 03/31/2019. The patient does have a history of small right-sided pneumothorax, this has been stable. The patient was scheduled for outpatient followup on 04/09/2019; however, she returned to the ER with complaints of shortness of breath earlier today and was admitted for observation. Upon my evaluation, the patient reports that her pain is less controlled than it was at home. She reports having difficulty coughing. She does endorse using her incentive spirometer at home and feels like her breathing stayed stable. OBJECTIVE: VITAL SIGNS: Stable and as documented in the electronic medical record. PHYSICAL EXAMINATION: GENERAL: Resting in bed, in no acute distress. PULMONARY: Normal work of breathing. Symmetric rise. 20 to 50 on incentive spirometry. GASTROINTESTINAL: Abdomen is soft, nontender, nondistended. MUSCULOSKELETAL: Moves all extremities x4. NEUROLOGIC: No focal deficit noted. ASSESSMENT: 1. Status post fall. 2. Small right apical pneumothorax. 3. Shortness of breath and cough. 4. Mucus plug, right lower lobe. 5. Atelectasis. 6. Leukocytosis, improved from previous admission. PLAN: Continue supportive care as ordered. Continue to follow sputum culture. Continue to encourage incentive spirometry and pulmonary toileting. The patient has not had any fevers since admission, her white blood cell count is improved from her initial presentation 3 days ago, she does not have evidence of bandemia. Her chest CT is consistent with atelectasis and mild mucus plugging associated with emphysematous changes. Given no definitive evidence of infiltrative process and active infection, would continue to hold antibiotics at this time. Of note, the patient did have a pulmonary nodule in the right lower lobe, which will require outpatient followup. She is doing well with her incentive spirometer at this time. Plan of care was discussed with the patient at bedside and all questions were answered prior to the end of this dictation. Job ID: [id number]
[2019-04-04 05:39] LABS: Anion Gap 12 mmol/L (10-20); BUN (Urea Nitrogen) 13 mg/dL (9.8-20.1); Calc. Creatinine Clearance 86 mL/min (70-130); Calcium 9.1 mg/dL (7.8-10.44); Carbon Dioxide 26 mmol/L (23-31); Chloride 103 mmol/L (98-107); Estimated GFR-MDRD 78; Glucose 80 mg/dL (83-110); Magnesium 2.1 mg/dL (1.6-2.6); Phosphorus 3.4 mg/dL (2.3-4.7); Sodium 137 mmol/L (136-145)
[2019-04-04] MEDS: Sodium Chloride 0.9% 1,000 ML IV SCH (06:02)
[2019-04-04 07:02] LABS: Band 4 % (5-11); Eosinophils 4 % (0-10); Hemoglobin 13.7 g/dL (12.0-16.0); Lymphocytes 42 % (21-51); MDiff Complete? YES; Mean Corpuscular HGB CONC 32.9 g/dL (32.0-36.0); Mean Corpuscular Hemoglobin 30.7 pg (27.0-31.0); Mean Corpuscular Volume 93.2 fL (78.0-98.0); Mean Platelet Volume 7.3 fL (7.4-10.4); Monocytes 8 % (0-10); Neutrophil 41 % (42-75); Platelet Count 208 thou/uL (130-400); Red Blood Cell (RBC) Count 4.46 mill/uL (4.20-5.40); White Blood Cell (WBC) Count 8.9 thou/uL (4.8-10.8)
[2019-04-04] MEDS ORDERED: Polyethylene Glycol 3350 17 GM Packet PO SCH (09:00)
[2019-04-04] MEDS: Gabapentin 300 MG CAP PO SCH (09:15)
[2019-04-04] MEDS: Senokot S 8.6-50 MG TAB PO SCH (09:16)
[2019-04-04] MEDS ORDERED: traMADol HCl 50 MG TAB PO PRN ×3 (10:26→11:45)
[2019-04-04] MEDS ORDERED: PROVENTIL INHALER 6.7 G (200 INHALATIONS) INH PRN (10:26)
[2019-04-04] MEDS ORDERED: Ibuprofen 200 MG TAB PO PRN ×2 (10:26→11:30)
[2019-04-04] MEDS ORDERED: Acetaminophen 500 MG TAB PO SCH ×2 (12:00)
[2019-04-04] MEDS ORDERED: traMADol HCl 50 MG TAB PO SCH ×2 (12:00)
[2019-04-04 12:09] VITALS: BP 152/84; TEMP 97.6
[2019-04-04] MEDS ORDERED: Gabapentin 100 MG CAP PO SCH ×2 (15:00)
--- NOTE | 2019-04-04 15:55 | PDOC.BPN ---
- Brief Progress Note 73 yo female s/p fall 04/01/2019 and subsequently discharged presents with shortness of breath and productive cough concerning for pneumonia. CT Chest demonstrated stable right pneumothorax. Laboratory analysis grossly normal. After observation, feeling much better. Encouraged to do IS at home. Vital Signs (12 hours) Temp Pulse Resp BP Pulse Ox 04/04/19 12:00 97.6 F 75 16 152/84 H 96 04/04/19 08:21 98.1 F 88 16 137/76 94 L 04/04/19 08:15 92 L 04/04/19 08:14 84 12 04/04/19 05:05 97.8 F 68 14 150/76 H 96 Weight Weight 174 lb 4.8 oz Laboratory Last Values WBC 8.9 thou/uL (4.8-10.8) 04/04/19 04:38 RBC 4.46 mill/uL (4.20-5.40) 04/04/19 04:38 Hgb 13.7 g/dL (12.0-16.0) 04/04/19 04:38 Hct 41.6 % (36.0-47.0) 04/04/19 04:38 MCV 93.2 fL (78.0-98.0) 04/04/19 04:38 MCH 30.7 pg (27.0-31.0) 04/04/19 04:38 MCHC 32.9 g/dL (32.0-36.0) 04/04/19 04:38 RDW 12.0 % (11.5-14.5) 04/04/19 04:38 Plt Count 208 thou/uL (130-400) 04/04/19 04:38 MPV 7.3 fL (7.4-10.4) L 04/04/19 04:38 Neutrophils % 70.4 % (42.0-75.0) 04/03/19 13:03 Neutrophils % (Manual) 41 % (42-75) L 04/04/19 04:38 Band Neuts % (Manual) 4 % (5-11) L 04/04/19 04:38 Lymphocytes % 18.4 % (21.0-51.0) L 04/03/19 13:03 Lymphocytes % (Manual) 42 % (21-51) 04/04/19 04:38 Monocytes % 8.1 % (0.0-10.0) 04/03/19 13:03 Monocytes % (Manual) 8 % (0-10) 04/04/19 04:38 Eosinophils % 2.4 % (0.0-10.0) 04/03/19 13:03 Eosinophils % (Manual) 4 % (0-10) 04/04/19 04:38 Basophils % 0.7 % (0.0-1.0) 04/03/19 13:03 Basophils % (Manual) 1 % (0-2) 04/04/19 04:38 Neutrophils # 9.0 thou/uL (1.40-6.50) H 04/03/19 13:03 Lymphocytes # 2.4 thou/uL (1.20-3.40) 04/03/19 13:03 Monocytes # 1.0 thou/uL (0.11-0.59) H 04/03/19 13:03 Eosinophils # 0.3 thou/uL (0.0-0.7) 04/03/19 13:03 Basophils # 0.1 thou/uL (0.0-0.2) 04/03/19 13:03 Sodium 137 mmol/L (136-145) 04/04/19 04:38 Potassium 4.0 mmol/L (3.5-5.1) 04/04/19 04:38 Chloride 103 mmol/L (98-107) 04/04/19 04:38 Carbon Dioxide 26 mmol/L (23-31) 04/04/19 04:38 Anion Gap 12 mmol/L (10-20) 04/04/19 04:38 BUN 13 mg/dL (9.8-20.1) 04/04/19 04:38 Creatinine 0.73 mg/dL (0.6-1.1) 04/04/19 04:38 Estimated GFR (MDRD) 78 04/04/19 04:38 Glucose 80 mg/dL (83-110) L 04/04/19 04:38 POC Glucose 85 mg/dL (70-110) 04/04/19 05:13 Calcium 9.1 mg/dL (7.8-10.44) 04/04/19 04:38 Phosphorus 3.4 mg/dL (2.3-4.7) 04/04/19 04:38 Magnesium 2.1 mg/dL (1.6-2.6) 04/04/19 04:38 Total Bilirubin 0.4 mg/dL (0.2-1.2) 04/03/19 13:03 AST 24 U/L (5-34) 04/03/19 13:03 ALT 22 U/L (8-55) 04/03/19 13:03 Alkaline Phosphatase 86 U/L (40-110) 04/03/19 13:03 Troponin I Less than 0.010 ng/mL (< 0.028) 04/03/19 13:03 B-Natriuretic Peptide 133.2 pg/mL (0-100) H 04/03/19 13:03 Serum Total Protein 8.1 g/dL (6.0-8.3) 04/03/19 13:03 Albumin 4.7 g/dL (3.4-4.8) 04/03/19 13:03 Globulin 3.4 g/dL (2.4-3.5) 04/03/19 13:03 Albumin/Globulin Ratio 1.4 g/dL (1.2-2.2) 04/03/19 13:03 EXAM: Alert and oriented. Sitting comfortably dressed and ready for discharge CTAB RRR ABD S/NT/ND Assessment: 73yo female s/p prior fall with SOB and sputum production. No evidence of pneumonia. Feeling much better after IS. Plan: Discharge home with instructions to continue to perform IS and improved pain control. Follow up with Trauma service as scheduled.
[2019-04-04] MEDS ORDERED: Azithromycin 250 MG TAB PO SCH (16:00)
[2019-04-04] MEDS ORDERED: Calcium Carbonate + Vit D 1 TAB PO SCH (21:00)
[2019-04-04] MEDS ORDERED: CALCIUM CITRATE PO SCH (21:00)
[2019-04-04] MEDS ORDERED: Simvastatin 5 MG TAB PO SCH (21:00)
[2019-04-04] MEDS ORDERED: Non-Formulary Item 1 EACH (Simvastatin [Zocor] 10 MG) PO SCH (21:00)
[2019-04-04] MEDS ORDERED: VITAMIN D3 PO SCH (21:00)
[2019-04-04] MEDS ORDERED: Montelukast Sodium 10 mg Tablet PO SCH ×2 (21:00)
[2019-04-04] MEDS ORDERED: metFORMIN 500 MG TAB PO SCH ×2 (21:00)
[2019-04-04] MEDS ORDERED: [UNRECOGNIZED DRUG - OTHER] PO SCH (21:00)
[2019-04-05] MEDS ORDERED: Levothyroxine Sodium 112 MCG TAB PO SCH (06:00)
[2019-04-05] MEDS ORDERED: Cyanocobalamin (Vitamin B-12) 1,000 MCG TAB PO SCH (09:00)
[2019-04-05] MEDS ORDERED: Valsartan 80 MG TAB PO SCH (09:00)
[2019-04-05] MEDS ORDERED: Non-Formulary Item 1 EACH (Valsartan/Hydrochlorothiazide [Valsartan-Hctz 160-25 Mg Tab] 1 PO SCH (09:00)
[2019-04-05] MEDS ORDERED: CYANOCOBALAMIN PO SCH (09:00)
[2019-04-05] MEDS ORDERED: Hydrochlorothiazide 25 MG TAB PO SCH (09:00)
[2019-04-05] MEDS ORDERED: Non-Formulary Item 1 EACH (Fluoxetine Hcl [Fluoxetine Hcl] 20 MG) PO SCH (09:00)
[2019-04-05] MEDS ORDERED: FLUoxetine HCl 20 MG CAP PO SCH (09:00)
[2019-04-05] MEDS ORDERED: Azithromycin 200 MG/5 ML Oral Suspension PO SCH (09:00)
[2019-04-05] MEDS ORDERED: Bisoprolol Fumarate 5 MG TAB PO SCH ×2 (09:00)
[2019-04-05] MEDS ORDERED: Non-Formulary Item 1 EACH (Levothyroxine Sodium [Synthroid] 137 MCG) PO SCH (09:00)
--- NOTE | 2019-04-06 13:23 | DIS ---
DATE OF ADMISSION: 04/03/2019 DATE OF DISCHARGE: 04/04/2019 This is Alejandra Torres NP dictating a report for Bhanu Son MD. PROCEDURES PERFORMED: 1. Chest x-ray on 04/03/2019, no acute pulmonary findings. Previously demonstrated right-sided pneumothorax that is currently not definitely visualized. 2. Chest thorax CTA impression, small pneumothorax in the right with apical and basilar components. Small volume pneumomediastinum, atelectatic change in right upper lobe, small volume bronchial plugging within the right lower lobe. PRIMARY DIAGNOSES: 1. Status post fall with right small apical pneumothorax on 04/01/2019. 2. Atelectasis. 3. Small residual apical pneumothorax, stable. 4. Productive cough. 5. Right basilar changes, likely mucus plugging. DISCHARGE MEDICATIONS: 1. Acetaminophen 1 g q.6 hours. 2. Albuterol inhaler. 3. Vitamin B12 daily. 4. Diltiazem 240 mg at bedtime. 5. Fluoxetine 20 mg p.o. q.a.m. 6. Gabapentin 100 mg p.o. 3 times a day. 7. Ibuprofen 400 mg q.8 hours p.r.n. 8. Synthroid 137 mcg p.o. q.a.m. 9. Metformin 500 mg p.o. b.i.d. 10. Singulair 20 mg p.o. at bedtime. 11. MiraLAX as needed. 12. Senokot as needed. 13. Zocor 10 mg p.o. at bedtime. 14. Valsartan hydrochlorothiazide 160-25mg p.o. q.a.m. 15. Tramadol 50 mg p.o. q.6 hours p.r.n. HISTORY OF PRESENT ILLNESS AND COURSE: This is a 73-year-old female, who presented to the emergency room with shortness of breath and productive cough that started today. The patient was admitted on 04/01/2019 after a mechanical fall in the shower, hitting her right side. The patient sustained a right-sided small pneumothorax and was admitted overnight for observation. The patient was discharged on pain medication and a followup appointment was scheduled with Trauma Clinic on 04/09/2019. The patient presented to the ER with some increased pain and coughing, worse with deep breath. The patient states that she could feel a mucus in her right lung. The patient was evaluated in the emergency room and was found to have a possible right basilar pneumonia. The patient was given IV antibiotics in the emergency room. The patient denied having any fever or chills. The patient's vital signs were stable. The patient was not tachycardic. Trauma Service was asked to readmit the patient. Scheduled nebs were done and aggressive pulmonary toilet. On the day of discharge, the patient reports feeling much better and her pain was well controlled. The patient was evaluated by Dr. Son. Vital signs were stable on the day of discharge and exam was unremarkable including cardiopulmonary and GI exam. The patient was deemed stable for discharge home with continued aggressive incentive spirometer use and pulmonary toilet. DISPOSITION: Stable. DISCHARGE INSTRUCTIONS: 1. Location: Home. 2. Diet: Regular diet. 3. Activity: As tolerated. Aggressive pulmonary toilet. 4. Followup: Follow up with Dr. Ospina with a chest x-ray on 04/09/2019. Job ID: [id number] [facility]
== END 2019-04-04 12:05 | disposition home or self-care (01) ==
LOC: ERS 12:34 → SURG A 16:11
PROVIDERS: ADMIT Surgery; ATTEND Surgery
DX: J93.9 Pneumothorax, unspecified (principal); I10 Essential (primary) hypertension; E03.9 Hypothyroidism, unspecified; E11.9 Type 2 diabetes mellitus without complications; E78.5 Hyperlipidemia, unspecified; D72.829 Elevated white blood cell count, unspecified; Z79.84 Long term (current) use of oral hypoglycemic drugs; Z79.899 Other long term (current) drug therapy; W18.30XA Fall on same level, unspecified, initial encounter; Y92.002 Bathroom of unspecified non-institutional (private) residence as the place of occurrence of the external cause
CPT/HCPCS: 71045; 71275; 80048; 80053; 82962 ×2; 83735 ×2; 83880; 84100 ×2; 84484; 85007; 85025; 85027; 87070; 87205; 87804 ×2; 93005; 94640 ×2; 94760; 96361 ×2; 96365; 96367; 96372; 96375; 99285; G0378 ×3; 36415; 36416; J0456; J0696; J1650; J2270; J7620; Q9967

== ENCOUNTER 2019-04-06 12:12 | Outpatient (CLI) | payer MEDICARE ==
--- NOTE | 2019-04-06 14:20 | RAD ---
CHEST 2 VIEWS: Date: 04/06/2019 INDICATION: History of pneumothorax after fall. COMPARISON: Prior exam dated 03/31/2019. FINDINGS: The right apical pneumothorax is nearly completely resolved. The area of subsegmental volume loss inv olving the right lung is stable. Mild bronchiectasis of the right upper lobe is stable. Left lung is clear. Heart size is normal. No acute osseous abnormality is evident. IMPRESSION: 1. Near complete resolution of the small right apical pneumothorax. 2. Stable scarring and bronchiectasis in the right upper lobe. POS: CET
== END 2019-04-06 12:13 | disposition home or self-care (01) ==
LOC: BICRAD 12:12
PROVIDERS: ATTEND Physician Assistant
DX: J93.9 Pneumothorax, unspecified (principal); J47.9 Bronchiectasis, uncomplicated; J98.4 Other disorders of lung
CPT/HCPCS: 71046

== ENCOUNTER 2019-05-12 10:11 | Outpatient (CLI) | payer MEDICARE ==
--- NOTE | 2019-05-12 10:55 | RAD ---
XR Foot Rt 3 View STANDARD History: Pain in foot Comparison: None. Findings: No acute displaced fracture or malalignment. Bones are mildly demineralized. Lisfranc interval is maintained. Moderate plantar calcaneal spur. Impression: Chronic findings. No acute abnormality.
== END 2019-05-12 10:12 | disposition home or self-care (01) ==
LOC: BICRAD 10:11
PROVIDERS: ATTEND Podiatrist
DX: M79.671 Pain in right foot (principal); M81.0 Age-related osteoporosis without current pathological fracture; M77.31 Calcaneal spur, right foot

== ENCOUNTER 2019-09-16 15:50 | Emergency (ER) | payer MEDICARE ==
--- NOTE | 2019-09-16 16:22 | ULT ---
ULTRASOUND ABDOMEN LIMITED: (RIGHT UPPER QUADRANT) DATE: 09/16/2019 HISTORY: 74 year old female with right upper quadrant abdominal pain FINDINGS: Gallbladder: Normal wall thickness. No evidence of pericholecystic fluid, gallstones, or sludge. Liver: Diffusely increased echogenicity, consistent with fatty liver. Common duct caliber:4 mm. Right kidney: No hydronephrosis. Pancreas: Nonspecific sonographic appearance. IMPRESSION: 1) Hepatic steatosis. 2) otherwise negative.
--- NOTE | 2019-09-16 16:26 | RAD ---
Chest one view HISTORY: Chest pain. COMPARISON: 04/03/2019. FINDINGS: Cardiac silhouette is magnified by projection. Pulmonary vasculature is unremarkable. Mediastinum is midline with aortic calcification. Calcified granulomata are consistent with healed granulomatous disease. Linear scarring at the right upper lobe and left lateral lung base are similar in appearance to the prior exam. No lobar consolidation or evidence of pneumothorax. IMPRESSION : Chronic-type findings are stable. No active cardiopulmonary abnormalities are demonstrated. Atherosclerosis.
[2019-09-16 16:36] LABS: #Basophils 0.1 thou/uL (0.0-0.2); #Eosinphils 0.3 thou/uL (0.0-0.7); #Lymphocytes 2.6 thou/uL (1.20-3.40); #Monocytes 1.4 thou/uL (0.11-0.59); #Neutrophils 7.2 thou/uL (1.40-6.50); %Basophils 0.8 % (0.0-1.0); %Eosinophils 2.8 % (0.0-10.0); %Lymphocytes 22.3 % (21.0-51.0); %Neutrophils 62.1 % (42.0-75.0); Hemoglobin 16.1 g/dL (12.0-16.0); Mean Corpuscular HGB CONC 33.9 g/dL (32.0-36.0); Mean Corpuscular Hemoglobin 30.8 pg (27.0-31.0); Mean Corpuscular Volume 91.1 fL (78.0-98.0); Platelet Count 257 thou/uL (130-400); Red Blood Cell (RBC) Count 5.23 mill/uL (4.20-5.40); White Blood Cell (WBC) Count 11.7 thou/uL (4.8-10.8)
[2019-09-16 17:00] LABS: ALT (SGPT) 35 U/L (8-55); AST (SGOT) 30 U/L (5-34); Albumin 4.6 g/dL (3.4-4.8); Alkaline Phosphatase 102 U/L (40-110); Anion Gap 14 mmol/L (10-20); BUN (Urea Nitrogen) 17 mg/dL (9.8-20.1); Bilirubin, Total 0.3 mg/dL (0.2-1.2); Calc. Creatinine Clearance 0 mL/min (70-130); Calcium 10.2 mg/dL (7.8-10.44); Carbon Dioxide 22 mmol/L (23-31); Chloride 100 mmol/L (98-107); Estimated GFR-MDRD 67; Globulin 3.7 g/dL (2.4-3.5); Glucose 119 mg/dL (83-110); Lipase 31 U/L (8-78); Potassium 4.1 mmol/L (3.5-5.1); Protein, Total 8.3 g/dL (6.0-8.3); Sodium 132 mmol/L (136-145)
[2019-09-16] MEDS ORDERED: Ketorolac Tromethamine 30 MG/ML VIAL ONE (18:20)
[2019-09-16 18:59] LABS: Bacteria/HPF None Seen HPF (None Seen); Bilirubin Negative (Negative); Blood, Urine Negative (Negative); Clarity Clear (Clear); Glucose, Urine (Dipstick) Normal (Negative); Ketone, Urine Negative (Negative); Leukocyte 250 Leu/uL (Negative); Nitrite Negative (Negative); Protein, Urine (Dipstick) Negative (Neg-Trace); RBC/HPF 0-3 HPF (0-3); Specific Gravity, Urine 1.014 (1.002-1.036); Squamous Epithelial 0-3 HPF (0-3); Urobilinogen Normal mg/dL (Less than 2)
== END 2019-09-16 20:01 | disposition home or self-care (01) ==
LOC: ERS 15:50
DX: B02.9 Zoster without complications (principal); I10 Essential (primary) hypertension; E78.00 Pure hypercholesterolemia, unspecified; E11.9 Type 2 diabetes mellitus without complications; E03.9 Hypothyroidism, unspecified; F32.9 Major depressive disorder, single episode, unspecified
CPT/HCPCS: 36415; 71045; 76705; 80053; 81003; 81015; 83690; 84484; 85025; 93005; 96372; J1885

== ENCOUNTER 2020-09-07 13:28 | Outpatient (CLI) | payer MEDICARE | END 2020-09-07 13:29 | disposition home or self-care (01) | LOC: BICMAMMO 13:28 | PROVIDERS: ATTEND Internal Medicine | DX: Z12.31 Encounter for screening mammogram for malignant neoplasm of breast (principal); Z80.3 Family history of malignant neoplasm of breast | CPT/HCPCS: 77063; 77067 ==

== ENCOUNTER 2021-10-16 11:43 | Outpatient (CLI) | payer MEDICARE | END 2021-10-16 11:44 | disposition home or self-care (01) | LOC: BICMAMMO 11:43 | PROVIDERS: ATTEND Internal Medicine | DX: Z12.31 Encounter for screening mammogram for malignant neoplasm of breast (principal); Z80.3 Family history of malignant neoplasm of breast | CPT/HCPCS: 77063; 77067 ==

== ENCOUNTER 2022-09-26 08:38 | Outpatient (CLI) | payer MEDICARE | END 2022-09-26 08:39 | disposition home or self-care (01) | LOC: RAD 08:38 | PROVIDERS: ATTEND Internal Medicine Critical Care Medicine | DX: R06.00 Dyspnea, unspecified (principal); R91.1 Solitary pulmonary nodule; J98.4 Other disorders of lung | CPT/HCPCS: 71046 ==

== ENCOUNTER 2022-10-25 06:13 | Day surgery (SDC) | payer MEDICARE ==
[2022-10-23 12:47] VITALS: BMI 27.3
[~2022-10-25 06:13] MED LIST: Fluorouracil 100 MG, Enoxaparin 25 MG, EPINEPHrine 0.3 MG in Ophthalmic Irrigation Solu... IRR SCH
[2022-10-25] MEDS ORDERED: PHENYLephrine 2.5% Ophth Soln 15 ml Bottle ONE (06:21)
[2022-10-25] MEDS ORDERED: Cyclopentolate 2% Opth Drop 15 ML BOT ONE (06:22)
[2022-10-25] MEDS ORDERED: fentaNYL 50 mcg/mL 1 mL Vial ONE (06:30)
[2022-10-25] MEDS ORDERED: Midazolam HCl 2 mg/2 ml Vial ONE (06:30)
[2022-10-25] MEDS ORDERED: Bupivacaine 0.75% 10 ML VIAL ONE (07:05)
[2022-10-25] MEDS ORDERED: Lidocaine 1% PF 5 ML VIAL ONE (07:05)
[2022-10-25] MEDS ORDERED: Indocyanine Green 25 MG/10 ML VIAL ONE (07:05)
[2022-10-25] MEDS ORDERED: Lidocaine 4% PF 5 ML AMP ONE (07:05)
[2022-10-25] MEDS ORDERED: PROPOFOL 200 MG/20 ML VIAL ONE (07:05)
[2022-10-25] MEDS ORDERED: Maxitrol 0.1% Opth Oint 3.5 GM TUBE ONE (07:05)
[2022-10-25] MEDS ORDERED: Triamcinolone 40 MG/ML VIAL ONE (07:05)
[2022-10-25] MEDS ORDERED: CEFAZOLIN 1 GM VIAL ONE (07:05)
== END 2022-10-25 08:50 | disposition home or self-care (01) ==
LOC: SDC 06:13
PROVIDERS: ATTEND Ophthalmology Retina Specialist
PROC: 08T53ZZ Resection of Left Vitreous, Percutaneous Approach (ICD-10-PCS; principal; 2022-10-25)
DX: H35.342 Macular cyst, hole, or pseudohole, left eye (principal); H35.372 Puckering of macula, left eye
CPT/HCPCS: 67025; 67042; J3010; J0171; J0690; J1650; J2250; J2704; J3301; J3490; J9190

== ENCOUNTER 2022-11-21 08:34 | Outpatient (CLI) | payer MEDICARE | END 2022-11-21 08:35 | disposition home or self-care (01) | LOC: BICMAMMO 08:34 | PROVIDERS: ATTEND Internal Medicine | DX: Z12.31 Encounter for screening mammogram for malignant neoplasm of breast (principal); Z80.3 Family history of malignant neoplasm of breast | CPT/HCPCS: 77063; 77067 ==

== ENCOUNTER 2023-06-27 16:00 | Outpatient (CLI) | payer MEDICARE | END 2023-06-27 16:01 | disposition home or self-care (01) | LOC: SLEEPLAB 16:00 | PROVIDERS: ATTEND Internal Medicine Critical Care Medicine | DX: G47.33 Obstructive sleep apnea (adult) (pediatric) (principal); R51.9 Headache, unspecified; R06.83 Snoring; E11.9 Type 2 diabetes mellitus without complications; I10 Essential (primary) hypertension; J45.909 Unspecified asthma, uncomplicated; G47.00 Insomnia, unspecified | CPT/HCPCS: 95811 ==

== ENCOUNTER 2024-04-23 09:10 | Outpatient (CLI) | payer MEDICARE | END 2024-04-23 09:11 | disposition home or self-care (01) | LOC: LABBT 09:10 | PROVIDERS: ATTEND Internal Medicine Cardiovascular Disease | DX: Z01.810 Encounter for preprocedural cardiovascular examination (principal); I48.19 Other persistent atrial fibrillation | CPT/HCPCS: 93005; 93010 ==

== ENCOUNTER 2024-04-27 08:19 | Day surgery (SDC) | payer MEDICARE ==
[2024-04-23 09:24] VITALS: BMI 23.8
[2024-04-23 10:07] LABS: %Basophils 0.8 % (0.0-1.0); %Lymphocytes 17.3 % (21.0-51.0); %Monocytes 10.2 % (0.0-10.0); %Neutrophils 69.1 % (42.0-75.0); Hematocrit 45.7 % (36.0-47.0); Hemoglobin 15.1 g/dL (12.0-16.0); Mean Corpuscular Hemoglobin 29.3 pg (27.0-31.0); Mean Corpuscular Volume 88.6 fL (78.0-98.0); Mean Platelet Volume 9.2 fL (7.4-10.4); Platelet Count 263 10x3/uL (130-400); RBC Distribution Width 13.5 % (11.5-14.5); Red Blood Cell (RBC) Count 5.16 mill/uL (4.20-5.40)
[2024-04-23 10:21] LABS: INR-International Normal Ratio 1.3; PTT 33.5 sec (22.9-36.1); Prothrombin Time 15.8 sec (12.0-14.7)
[2024-04-23 10:30] LABS: ALT (SGPT) 27 U/L (Less than 34); AST (SGOT) 28 U/L (11-34); Albumin 3.7 g/dL (3.1-4.5); Alkaline Phosphatase 91 U/L (40-110); Anion Gap 14 mmol/L (10-20); BUN (Urea Nitrogen) 13 mg/dL (9.8-20.1); Bilirubin, Total 0.4 mg/dL (0.3-1.2); Calc. Creatinine Clearance 0 mL/min (70-130); Calcium 9.5 mg/dL (7.8-10.44); Carbon Dioxide 25 mmol/L (23-31); Chloride 102 mmol/L (98-107); Estimated GFR 89; Globulin 3.5 g/dL (2.4-3.5); Glucose 177 mg/dL (83-110); Potassium 4.2 mmol/L (3.5-5.1); Protein, Total 7.2 g/dL (5.8-8.1); Sodium 137 mmol/L (136-145)
[2024-04-27] MEDS ORDERED: Heparin 25,000 units/D5W 500 ML ONE (08:31)
[2024-04-27] MEDS ORDERED: Heparin 10,000 UNITS/ 10 ML VIAL ONE (08:31)
[2024-04-27] MEDS ORDERED: Protamine Sulfate 50 MG/5 ML VIAL ONE ×2 (08:33→12:02)
[2024-04-27] MEDS ORDERED: fentaNYL PF 100 MCG/2 ML SYRINGE ONE (09:36)
[2024-04-27] MEDS ORDERED: PROPOFOL 200 MG/20 ML VIAL ONE (09:47)
[2024-04-27] MEDS ORDERED: NEOSTIGMINE 3 MG/3 ML SYRINGE ONE (09:47)
[2024-04-27] MEDS ORDERED: Glycopyrrolate 0.2 MG/ML 5 ML SYRINGE ONE (09:47)
[2024-04-27] MEDS ORDERED: Dexamethasone 20 MG/5 ML VIAL ONE (09:47)
[2024-04-27] MEDS ORDERED: Ondansetron PF 4 MG/2 ML Vial ONE (09:47)
[2024-04-27] MEDS ORDERED: Lidocaine 1% PF 5 ML VIAL ONE (09:47)
[2024-04-27] MEDS ORDERED: Rocuronium Bromide 10 MG/ML (10ML VIAL) ONE (09:47)
[2024-04-27] MEDS ORDERED: Phenylephrine 10 MG/ML VIAL ONE (10:09)
[2024-04-27] MEDS ORDERED: Isoproterenol 0.2 MG/1 ML AMP ONE (10:10)
[2024-04-27] MEDS ORDERED: SUGAMMADEX SODIUM 200 MG/2 ML VIAL ONE (12:20)
[2024-04-29 16:14] LABS: Hemoglobin,Free - Plasma 67.8 mg/dL (0.0-4.9)
== END 2024-04-27 16:48 | disposition home or self-care (01) ==
LOC: SDC 08:19
PROVIDERS: ATTEND Internal Medicine Cardiovascular Disease
PROC: 4A023FZ Measurement of Cardiac Rhythm, Percutaneous Approach (ICD-10-PCS; principal; 2024-04-27)
PROC: 02583ZZ Destruction of Conduction Mechanism, Percutaneous Approach (ICD-10-PCS; 2024-04-27)
DX: I48.19 Other persistent atrial fibrillation (principal); I10 Essential (primary) hypertension; E11.9 Type 2 diabetes mellitus without complications; E78.5 Hyperlipidemia, unspecified; E03.9 Hypothyroidism, unspecified; F41.9 Anxiety disorder, unspecified; K76.0 Fatty (change of) liver, not elsewhere classified; J45.909 Unspecified asthma, uncomplicated; Z90.710 Acquired absence of both cervix and uterus; Z90.89 Acquired absence of other organs; Z90.49 Acquired absence of other specified parts of digestive tract; Z79.01 Long term (current) use of anticoagulants
CPT/HCPCS: 80053; 82962; 83010; 83051; 83874; 85025; 85347 ×2; 85610; 85730; 86850; 86900; 86901; 93623; 93656; 93657; C1730; C1732; C1733; C1759; C1760; C1766; C1769; C1894; J1644 ×2; J2371; J2720; 36416; 93005; J1100; J2405; J2704

== ENCOUNTER 2024-11-03 08:35 | Outpatient (CLI) | payer MEDICARE ==
[2024-11-03 10:15] LABS: #Basophils 0.09 10x3/uL (0.0-0.2); #Eosinophils 0.23 10x3/uL (0.0-0.7); #Monocytes 1.02 10x3/uL (0.11-0.59); #Neutrophils 5.94 10x3/uL (1.40-6.50); %Basophils 0.9 % (0.0-1.0); %Eosinophils 2.4 % (0.0-10.0); %Lymphocytes 23.9 % (21.0-51.0); %Monocytes 10.5 % (0.0-10.0); %Neutrophils 61.1 % (42.0-75.0); Hematocrit 42.8 % (36.0-47.0); Hemoglobin 14.3 g/dL (12.0-16.0); Mean Corpuscular Hemoglobin 29.8 pg (27.0-31.0); Mean Corpuscular Volume 89.2 fL (78.0-98.0); Platelet Count 232 10x3/uL (130-400); Red Blood Cell (RBC) Count 4.80 mill/uL (4.20-5.40); White Blood Cell (WBC) Count 9.72 10x3/uL (4.8-10.8)
[2024-11-03 10:41] LABS: INR-International Normal Ratio 1.4; Prothrombin Time 17.1 sec (12.0-14.7)
[2024-11-03 10:42] LABS: PTT 37.4 sec (22.9-36.1)
[2024-11-03 10:59] LABS: Anion Gap 14 mmol/L (10-20); BUN (Urea Nitrogen) 15 mg/dL (9.8-20.1); Calc. Creatinine Clearance 0 mL/min (70-130); Calcium 9.4 mg/dL (7.8-10.44); Carbon Dioxide 22 mmol/L (23-31); Chloride 104 mmol/L (98-107); Glucose 109 mg/dL (83-110); Potassium 4.2 mmol/L (3.5-5.1); Sodium 136 mmol/L (136-145)
== END 2024-11-03 08:36 | disposition home or self-care (01) ==
LOC: LABBT 08:35
PROVIDERS: ATTEND Internal Medicine Cardiovascular Disease
DX: Z01.812 Encounter for preprocedural laboratory examination (principal); I48.19 Other persistent atrial fibrillation; I48.92 Unspecified atrial flutter
CPT/HCPCS: 80048; 85025; 85610; 85730

== ENCOUNTER 2024-11-04 08:27 | Day surgery (SDC) | payer MEDICARE ==
[2024-11-03 08:47] VITALS: BMI 25.8
[2024-11-04] MEDS ORDERED: Lidocaine 1% PF 5 ML VIAL ONE (11:26)
[2024-11-04] MEDS ORDERED: PROPOFOL 200 MG/20 ML VIAL ONE (11:26)
== END 2024-11-04 12:13 | disposition home or self-care (01) ==
LOC: SDC 08:27
PROVIDERS: ATTEND Internal Medicine Cardiovascular Disease
PROC: 5A2204Z Restoration of Cardiac Rhythm, Single (ICD-10-PCS; principal; 2024-11-04)
DX: I48.19 Other persistent atrial fibrillation (principal); Z90.89 Acquired absence of other organs; Z90.710 Acquired absence of both cervix and uterus; Z90.49 Acquired absence of other specified parts of digestive tract
CPT/HCPCS: 36416; 92960; J2704

== ENCOUNTER 2024-11-08 09:32 | Emergency (ER) | payer MEDICARE ==
[2024-11-08 10:05] LABS: #Basophils 0.06 10x3/uL (0.0-0.2); #Eosinophils 0.14 10x3/uL (0.0-0.7); #Monocytes 1.24 10x3/uL (0.11-0.59); #Neutrophils 8.75 10x3/uL (1.40-6.50); %Basophils 0.5 % (0.0-1.0); %Eosinophils 1.2 % (0.0-10.0); %Lymphocytes 11.8 % (21.0-51.0); %Monocytes 10.7 % (0.0-10.0); %Neutrophils 75.4 % (42.0-75.0); Hematocrit 39.3 % (36.0-47.0); Hemoglobin 13.0 g/dL (12.0-16.0); Mean Corpuscular Hemoglobin 29.5 pg (27.0-31.0); Mean Corpuscular Volume 89.1 fL (78.0-98.0); Platelet Count 193 10x3/uL (130-400); Red Blood Cell (RBC) Count 4.41 mill/uL (4.20-5.40); White Blood Cell (WBC) Count 11.61 10x3/uL (4.8-10.8)
[2024-11-08] MEDS ORDERED: Droperidol 5 MG/2 ML VIAL ONE (10:15)
[2024-11-08 10:20] LABS: ALT (SGPT) 25 U/L (Less than 34); AST (SGOT) 26 U/L (11-34); Albumin 3.8 g/dL (3.1-4.5); Alkaline Phosphatase 71 U/L (40-110); Anion Gap 14 mmol/L (10-20); BUN (Urea Nitrogen) 15 mg/dL (9.8-20.1); Bilirubin, Total 1.0 mg/dL (0.3-1.2); Calc. Creatinine Clearance 0 mL/min (70-130); Calcium 9.4 mg/dL (7.8-10.44); Carbon Dioxide 24 mmol/L (23-31); Chloride 97 mmol/L (98-107); Globulin 3.7 g/dL (2.4-3.5); Glucose 130 mg/dL (83-110); Lipase 19 U/L (8-78); Magnesium 2.1 mg/dL (1.6-2.6); Potassium 3.8 mmol/L (3.5-5.1); Sodium 131 mmol/L (136-145)
[2024-11-08 10:55] LABS: Bacteria/HPF None Seen HPF (None Seen); CAUTI Indications for Culture Pelvic or flank pain; Glucose, Urine (Dipstick) Normal (Negative); Leukocyte Negative Leu/uL (Negative); Protein, Urine (Dipstick) Negative (Neg-Trace); RBC/HPF 0-3 HPF (0-3); Specific Gravity, Urine 1.015 (1.002-1.036); WBC/HPF 0-3 HPF (0-3)
[2024-11-08 10:58] LABS: Urine Culture Reflex No No
[2024-11-08] MEDS ORDERED: Iopamidol-370 76% 500 ML MDV (1 ML CHARGE) ONE (13:20)
== END 2024-11-08 13:14 | disposition home or self-care (01) ==
LOC: ERS 09:32
DX: R10.13 Epigastric pain (principal); J45.901 Unspecified asthma with (acute) exacerbation; J18.9 Pneumonia, unspecified organism; E11.9 Type 2 diabetes mellitus without complications; I10 Essential (primary) hypertension; Z55.6 Problems related to health literacy; Z75.3 Unavailability and inaccessibility of health-care facilities
CPT/HCPCS: 70450; 71045; 71275; 74177; 76705; 80053; 81001; 83605; 83690; 83735; 83880; 84484; 85025; 85379; 87428; 93005; J1790; J2543; J2919; J3010; 36415; 96374; 96375; J7620; Q9967

== ENCOUNTER 2024-11-20 13:19 | Outpatient (CLI) | payer MEDICARE ==
[2024-11-20] MEDS ORDERED: Iopamidol-370 76% 500 ML MDV (1 ML CHARGE) ONE (15:37)
== END 2024-11-20 13:20 | disposition home or self-care (01) ==
LOC: CT 13:19
PROVIDERS: ATTEND Internal Medicine Critical Care Medicine
DX: R06.00 Dyspnea, unspecified (principal); I26.99 Other pulmonary embolism without acute cor pulmonale; R91.8 Other nonspecific abnormal finding of lung field
CPT/HCPCS: 71046; 71275; Q9967

== ENCOUNTER 2025-01-25 14:09 | Inpatient (IN) | payer MEDICARE ==
[~2025-01-25 14:09] MED LIST changes: -Fluorouracil 100 MG, Enoxaparin 25 MG, EPINEPHrine 0.3 MG in Ophthalmic Irrigation Solu... IRR SCH; +Iopamidol-370 76% 500 ML MDV (1 ML CHARGE) ONE
[2025-01-25 15:13] LABS: #Basophils 0.11 10x3/uL (0.0-0.2); #Eosinophils 0.43 10x3/uL (0.0-0.7); #Monocytes 1.46 10x3/uL (0.11-0.59); #Neutrophils 7.43 10x3/uL (1.40-6.50); %Basophils 0.9 % (0.0-1.0); %Eosinophils 3.6 % (0.0-10.0); %Lymphocytes 19.4 % (21.0-51.0); %Monocytes 12.1 % (0.0-10.0); %Neutrophils 61.4 % (42.0-75.0); Hematocrit 31.4 % (36.0-47.0); Hemoglobin 10.0 g/dL (12.0-16.0); Mean Corpuscular Hemoglobin 28.9 pg (27.0-31.0); Mean Corpuscular Volume 90.8 fL (78.0-98.0); Platelet Count 348 10x3/uL (130-400); Red Blood Cell (RBC) Count 3.46 mill/uL (4.20-5.40); White Blood Cell (WBC) Count 12.08 10x3/uL (4.8-10.8)
[2025-01-25 15:28] LABS: ALT (SGPT) 31 U/L (Less than 34); AST (SGOT) 37 U/L (11-34); Albumin 3.7 g/dL (3.1-4.5); Alkaline Phosphatase 102 U/L (40-110); Anion Gap 18 mmol/L (10-20); BUN (Urea Nitrogen) 15 mg/dL (9.8-20.1); Bilirubin, Total 0.8 mg/dL (0.3-1.2); Calc. Creatinine Clearance 0 mL/min (70-130); Calcium 9.5 mg/dL (7.8-10.44); Carbon Dioxide 23 mmol/L (23-31); Chloride 100 mmol/L (98-107); Globulin 3.4 g/dL (2.4-3.5); Glucose 106 mg/dL (83-110); Potassium 3.5 mmol/L (3.5-5.1); Sodium 137 mmol/L (136-145)
[2025-01-25 15:30] LABS: INR-International Normal Ratio 1.7; Prothrombin Time 20.1 sec (12.0-14.7)
[2025-01-25 15:31] LABS: PTT 43.2 sec (22.9-36.1)
[2025-01-25] MEDS ORDERED: Cefepime 2 GM VIAL ONE (15:46)
[2025-01-25] MEDS ORDERED: Ondansetron PF 4 MG/2 ML Vial IVP PRN (15:51)
[2025-01-25] MEDS: VANCOMYCIN 2 GRAM/400 ML Premix BAG IVPB SCH (18:02)
[2025-01-25] MEDS: HYDROcodone/Acetaminophen 5/325 mg Tablet PO PRN (20:09)
[2025-01-25] MEDS: Senokot S 8.6-50 MG TAB PO SCH (20:10)
[2025-01-25] MEDS ORDERED: Artificial Tear Ophth Sol 15 ML BOT EA EYE PRN (21:27)
[2025-01-25] MEDS: Gabapentin 300 MG CAP PO SCH (21:41)
[2025-01-25] MEDS: guaiFENesin/DM ER PO SCH (21:41)
[2025-01-25] MEDS: Rosuvastatin 20 MG TAB PO SCH (21:41)
[2025-01-26 05:35] LABS: #Basophils 0.10 10x3/uL (0.0-0.2); #Eosinophils 0.50 10x3/uL (0.0-0.7); #Monocytes 1.29 10x3/uL (0.11-0.59); #Neutrophils 7.01 10x3/uL (1.40-6.50); %Basophils 0.9 % (0.0-1.0); %Eosinophils 4.3 % (0.0-10.0); %Lymphocytes 20.9 % (21.0-51.0); %Monocytes 11.1 % (0.0-10.0); %Neutrophils 60.5 % (42.0-75.0); Hematocrit 32.4 % (36.0-47.0); Hemoglobin 10.1 g/dL (12.0-16.0); Mean Corpuscular Hemoglobin 28.8 pg (27.0-31.0); Mean Corpuscular Volume 92.3 fL (78.0-98.0); Platelet Count 348 10x3/uL (130-400); Red Blood Cell (RBC) Count 3.51 mill/uL (4.20-5.40); White Blood Cell (WBC) Count 11.59 10x3/uL (4.8-10.8)
[2025-01-26 05:50] LABS: Anion Gap 16 mmol/L (10-20); BUN (Urea Nitrogen) 11 mg/dL (9.8-20.1); Calc. Creatinine Clearance 85 mL/min (70-130); Calcium 9.5 mg/dL (7.8-10.44); Carbon Dioxide 21 mmol/L (23-31); Chloride 105 mmol/L (98-107); Glucose 110 mg/dL (83-110); Potassium 3.8 mmol/L (3.5-5.1); Sodium 138 mmol/L (136-145)
[2025-01-26] MEDS: Mometasone 200 MCG/Formoterol 5 MCG 120 PUFF INHALER INH SCH (06:59)
[2025-01-26] MEDS ORDERED: Heparin 5,000 UNITS/ML VIAL ONE (09:14)
[2025-01-26] MEDS ORDERED: Lidocaine 1% PF 5 ML VIAL ONE (09:28)
[2025-01-26] MEDS ORDERED: Ondansetron PF 4 MG/2 ML Vial ONE (09:28)
[2025-01-26] MEDS ORDERED: Albuterol HFA (OR) 200 PUFF INH ONE (09:34)
[2025-01-26] MEDS ORDERED: Rocuronium Bromide 10 MG/ML (10ML VIAL) ONE (09:38)
[2025-01-26] MEDS ORDERED: PROPOFOL 200 MG/20 ML VIAL ONE (09:38)
[2025-01-26] MEDS ORDERED: SUGAMMADEX SODIUM 200 MG/2 ML VIAL ONE (10:38)
[2025-01-26] MEDS ORDERED: HYDROmorphone 0.5 MG/0.5 ML SYRINGE ONE (11:59)
[2025-01-26 14:13] LABS: Vancomycin, Random 12.4 ug/mL (See Comment)
[2025-01-26] MEDS: Vancomycin 1 GM in Premix 1 BAG IVPB SCH (17:06)
[2025-01-26] MEDS ORDERED: Vancomycin 1.5 GM / NS 500 ML VIAL-2-BAG IVPB SCH (18:00)
[2025-01-27 05:42] LABS: Vancomycin, Random 9.0 ug/mL (See Comment)
[2025-01-27 05:47] LABS: Calc. Creatinine Clearance 95.0 mL/min (70-130)
[2025-01-27] MEDS: Amoxicillin/Potassium Clav 500 MG TAB PO SCH (08:57)
[2025-01-28] MEDS: Acetaminophen 325 MG TAB PO PRN (17:03)
[2025-01-29] MEDS: Apixaban 5 MG TAB PO SCH (09:13)
[2025-01-29] MEDS: Acetaminophen 500 MG TAB PO SCH (09:15)
[2025-01-29 10:50] VITALS: BMI 24.9
[2025-01-29] MEDS: Calcium Carbonate 500 MG ChewTAB PO PRN (12:26)
[2025-01-29] MEDS: metFORMIN 500 MG TAB PO SCH (16:16)
[2025-01-30 08:08] VITALS: BP 152/77; TEMP 97.8
== END 2025-01-30 10:51 | disposition home or self-care (01) | DRG 908 ==
LOC: ERS 14:09 → T4-B 15:33
PROVIDERS: ADMIT Student in an Organized Health Care Education/Training Program; ATTEND Internal Medicine
PROC: 3E03329 Introduction of Other Anti-infective into Peripheral Vein, Percutaneous Approach (ICD-10-PCS; 2025-01-25)
PROC: 0JCM0ZZ Extirpation of Matter from Left Upper Leg Subcutaneous Tissue and Fascia, Open Approach (ICD-10-PCS; principal; 2025-01-26)
PROC: 04QL0ZZ Repair Left Femoral Artery, Open Approach (ICD-10-PCS; 2025-01-26)
DX: I97.621 Postprocedural hematoma of a circulatory system organ or structure following other procedure (principal); D62 Acute posthemorrhagic anemia; I48.19 Other persistent atrial fibrillation; L03.314 Cellulitis of groin; I72.4 Aneurysm of artery of lower extremity; Z66 Do not resuscitate; E11.40 Type 2 diabetes mellitus with diabetic neuropathy, unspecified; Z79.4 Long term (current) use of insulin; I10 Essential (primary) hypertension; J45.909 Unspecified asthma, uncomplicated; J39.9 Disease of upper respiratory tract, unspecified; E03.9 Hypothyroidism, unspecified; Z79.899 Other long term (current) drug therapy; E78.00 Pure hypercholesterolemia, unspecified; Z90.49 Acquired absence of other specified parts of digestive tract; Z90.710 Acquired absence of both cervix and uterus; F32.A Depression, unspecified; F10.90 Alcohol use, unspecified, uncomplicated; Z60.2 Problems related to living alone; Z79.890 Hormone replacement therapy; Z98.890 Other specified postprocedural states; I48.0 Paroxysmal atrial fibrillation; Z79.84 Long term (current) use of oral hypoglycemic drugs; E87.6 Hypokalemia; R51.9 Headache, unspecified; Y83.8 Other surgical procedures as the cause of abnormal reaction of the patient, or of later complication, without mention of misadventure at the time of the procedure
CPT/HCPCS: 36415; 36416; 71045; 74174; 80048; 80053; 80202; 82565; 85025; 85610; 85730; 86850; 86900; 86901; 87081; 93005; 96374; 96375; J0169; J0692; J1171; J1644; J2270; J2272; J2405; J2704; J3010; J3373; J3375; Q9967

== ENCOUNTER 2025-02-05 07:52 | Inpatient (IN) | payer MEDICARE ==
[2025-02-04 14:57] VITALS: BMI 26.1
[2025-02-05] MEDS ORDERED: fentaNYL PF 100 MCG/2 ML SYRINGE ONE (07:58)
[2025-02-05] MEDS ORDERED: Ondansetron PF 4 MG/2 ML Vial ONE (08:29)
[2025-02-05] MEDS ORDERED: PROPOFOL 200 MG/20 ML VIAL ONE (08:47)
[2025-02-05] MEDS ORDERED: CEFAZOLIN 1 GM VIAL ONE (08:51)
[2025-02-05] MEDS ORDERED: Albuterol 200 PUFF (6.7GM INHALER) INH PRN (16:48)
[2025-02-05] MEDS ORDERED: Melatonin 3 MG TAB PO PRN (16:48)
[2025-02-05] MEDS ORDERED: Glucagon 1 MG/ML KIT IM PRN (16:48)
[2025-02-05] MEDS ORDERED: Dextrose 50% Abboject 50 ML SYRINGE SLOW IVP PRN (16:48)
[2025-02-05] MEDS ORDERED: Artificial Tear Ophth Sol 15 ML BOT EA EYE PRN (16:55)
[2025-02-05] MEDS: Acetaminophen 500 MG TAB PO SCH (17:33)
[2025-02-05] MEDS: metFORMIN 500 MG TAB PO SCH (17:33)
[2025-02-05] MEDS: Mometasone 200 MCG/Formoterol 5 MCG 120 PUFF INHALER INH SCH (18:39)
[2025-02-05] MEDS: Calcium Carbonate 600 MG + Vit D TAB PO SCH (22:49)
[2025-02-05] MEDS: Sulfameth/Trimethoprim DS 800-160mg TAB PO SCH (22:49)
[2025-02-05] MEDS: guaiFENesin/DM ER PO SCH (22:50)
[2025-02-05] MEDS: Gabapentin 300 MG CAP PO SCH (22:50)
[2025-02-05] MEDS: Rosuvastatin 20 MG TAB PO SCH (22:50)
[2025-02-05] MEDS: Magnesium Oxide 400 MG TAB PO SCH (22:51)
[2025-02-05] MEDS: Insulin Glargine 30 UNITS/0.3 ML VIAL SC SCH (22:51)
[2025-02-06] MEDS: Acetaminophen 500 MG TAB PO SCH (00:09)
[2025-02-06 05:11] LABS: #Basophils 0.04 10x3/uL (0.0-0.2); #Eosinophils 0.23 10x3/uL (0.0-0.7); #Monocytes 1.02 10x3/uL (0.11-0.59); #Neutrophils 4.39 10x3/uL (1.40-6.50); %Basophils 0.5 % (0.0-1.0); %Eosinophils 3.1 % (0.0-10.0); %Lymphocytes 23.2 % (21.0-51.0); %Monocytes 13.7 % (0.0-10.0); %Neutrophils 59.0 % (42.0-75.0); Hematocrit 33.8 % (36.0-47.0); Hemoglobin 10.6 g/dL (12.0-16.0); Mean Corpuscular Hemoglobin 28.7 pg (27.0-31.0); Mean Corpuscular Volume 91.6 fL (78.0-98.0); Platelet Count 332 10x3/uL (130-400); Red Blood Cell (RBC) Count 3.69 mill/uL (4.20-5.40); White Blood Cell (WBC) Count 7.45 10x3/uL (4.8-10.8)
[2025-02-06] MEDS ORDERED: VALERIAN ROOT 450 MG PO SCH (09:00)
[2025-02-06] MEDS: Losartan 25 MG TAB PO SCH (09:33)
[2025-02-06] MEDS: Cyanocobalamin (Vitamin B-12) 1,000 MCG TAB PO SCH (09:34)
[2025-02-06] MEDS: Apixaban 5 MG TAB PO SCH (09:35)
[2025-02-06 22:19] VITALS: BMI 26.1
[2025-02-10 08:21] VITALS: TEMP 97.8
[2025-02-10 11:35] VITALS: BP 125/72
== END 2025-02-10 16:08 | disposition home or self-care (01) | DRG 989 ==
LOC: SDC 07:52 → SURG B 14:04
PROVIDERS: ADMIT Thoracic Surgery (Cardiothoracic Vascular Surgery); ATTEND Thoracic Surgery (Cardiothoracic Vascular Surgery)
PROC: 0YB60ZZ Excision of Left Inguinal Region, Open Approach (ICD-10-PCS; principal; 2025-02-05)
DX: I97.638 Postprocedural hematoma of a circulatory system organ or structure following other circulatory system procedure (principal); Z79.899 Other long term (current) drug therapy; I48.91 Unspecified atrial fibrillation; E11.9 Type 2 diabetes mellitus without complications; I10 Essential (primary) hypertension; Z98.890 Other specified postprocedural states; E03.9 Hypothyroidism, unspecified; Z79.01 Long term (current) use of anticoagulants; G47.33 Obstructive sleep apnea (adult) (pediatric); Z87.891 Personal history of nicotine dependence
CPT/HCPCS: 36415; 36416; 85025; 87070; 87077; 87186; 87205; 94664; 97139; J0690; J1815; J2405; J2704; J3010; Q0162